=== PATIENT | male | born 1935 | race Hispanic/Latino ===

== ENCOUNTER 2018-10-13 19:13 | Emergency (ER) | payer MEDICARE ==
[2018-10-13 19:47] LABS: BASOPHILS % (AUTO) 0.6 % (0.0-5.0); EOSINOPHILS % (AUTO) 1.3 % (0.0-8.0); HEMATOCRIT 38.9 % (42-54); LYMPHOCYTES % (AUTO) 20.9 % (21.0-51.0); MEAN CORPUSCULAR HEMOGLOBIN 30.7 pg (27.0-33.0); MEAN CORPUSCULAR HGB CONC 34.6 g/dL (32.0-36.0); MONOCYTES % (AUTO) 8.4 % (3.0-13.0); NEUTROPHILS % (AUTO) 68.8 % (40.0-77.0); NUCLEATED RED BLOOD CELLS 0.1 % (0.0-0.19); PLATELET COUNT (AUTO) 226 K/uL (130-400); RED BLOOD CELL COUNT(AUTO) 4.37 MIL/uL (4.50-6.20); RED CELL DISTRIBUTION WIDTH 14.9 % (11.0-15.5); WHITE BLOOD COUNT (AUTO) 10.9 K/uL (4.8-10.8)
[2018-10-13] MEDS ORDERED: SODIUM CHLORIDE 0.9% 1000ML 1,000 ML IV ONE (19:52)
[2018-10-13 20:07] LABS: CREATININE 0.9 mg/dL (0.5-1.5)
[2018-10-13 20:12] LABS: ALBUMIN 3.5 g/dL (3.5-5.0); BILIRUBIN,TOTAL 0.8 mg/dL (0.2-1.0); TOTAL PROTEIN, SERUM 6.7 g/dL (6.0-8.3)
[2018-10-13 21:31] LABS: APPEARANCE,URINE Clear (CLEAR); BILIRUBIN,URINE Negative (NEGATIVE); COLOR,URINE Yellow (YELLOW); GLUCOSE, URINE (UA) Negative (NEGATIVE); KETONES,URINE Negative (NEGATIVE); LEUKOCYTE ESTERASE ,URINE Negative (NEGATIVE); NITRATE,URINE Negative (NEGATIVE); OCCULT BLOOD,URINE Trace (NEGATIVE); PROTEIN,URINE Negative (NEGATIVE); UROBILINOGEN,URINE 0.2 mg/dL (0.2-1.0)
[2018-10-13 21:38] LABS: RBC,URINE None Seen /HPF (0-1)
[2018-10-13 21:39] LABS: BACTERIA,URINE Rare /HPF (None Seen); SQUAMOUS EPITHELIAL CELL,UR None Seen /HPF (0-2); WBC,URINE 0-1 /HPF (0-1)
[2018-10-13] MEDS ORDERED: MAGNESIUM OXIDE 400 MG TABLET PO ONE (21:42)
[2018-10-13 23:48] LABS: APPEARANCE,URINE Clear (CLEAR); BILIRUBIN,URINE Negative (NEGATIVE); COLOR,URINE Yellow (YELLOW); GLUCOSE, URINE (UA) Negative (NEGATIVE); KETONES,URINE Negative (NEGATIVE); LEUKOCYTE ESTERASE ,URINE Trace (NEGATIVE); NITRATE,URINE Negative (NEGATIVE); OCCULT BLOOD,URINE Negative (NEGATIVE); PH,URINE 5.5 (5.0-8.0); PROTEIN,URINE Negative (NEGATIVE); UROBILINOGEN,URINE 0.2 mg/dL (0.2-1.0)
[2018-10-14] LABS: BACTERIA,URINE None Seen /HPF (None Seen); RBC,URINE None Seen /HPF (0-1); SQUAMOUS EPITHELIAL CELL,UR Rare /HPF (0-2); WBC,URINE 0-1 /HPF (0-1)
== END 2018-10-13 23:21 | disposition home or self-care (01) ==
LOC: EDH 19:13
DX: M62.81 Muscle weakness (generalized) (principal); I10 Essential (primary) hypertension; E78.5 Hyperlipidemia, unspecified; E07.9 Disorder of thyroid, unspecified; Z86.73 Personal history of transient ischemic attack (TIA), and cerebral infarction without residual deficits; Z98.890 Other specified postprocedural states
CPT/HCPCS: 36415; 71045; 80053; 81001; 83605; 83735; 84484; 85025; 87040 ×2; 87804 ×2; 93005; 99284; J7030

== ENCOUNTER → 2019-06-01 | Outpatient (CLI) | payer MEDICARE | END | disposition home or self-care (01) | LOC: RAH 10:49 | PROVIDERS: ATTEND Urology | DX: N28.1 Cyst of kidney, acquired (principal); N32.89 Other specified disorders of bladder | CPT/HCPCS: 76770 ==

== ENCOUNTER 2019-07-14 12:54 | Emergency (ER) | payer MEDICARE ==
[2019-07-14 13:34] LABS: BASOPHILS % (AUTO) 0.3 % (0.0-5.0); EOSINOPHILS % (AUTO) 4.2 % (0.0-8.0); HEMATOCRIT 40.1 % (42-54); MEAN CORPUSCULAR HEMOGLOBIN 29.1 pg (27.0-33.0); MEAN CORPUSCULAR HGB CONC 32.7 g/dL (32.0-36.0); MEAN CORPUSCULAR VOLUME 89.1 fL (79-99); MONOCYTES % (AUTO) 10.4 % (3.0-13.0); NEUTROPHILS % (AUTO) 44.9 % (40.0-77.0); PLATELET COUNT (AUTO) 257 K/uL (130-400); RED CELL DISTRIBUTION WIDTH 14.2 % (11.0-15.5); WHITE BLOOD COUNT (AUTO) 8.8 K/uL (4.8-10.8)
[2019-07-14 13:41] LABS: POTASSIUM 3.9 mmol/L (3.5-5.1)
[2019-07-14 13:43] LABS: INR 1.02 (0.85-1.15); PARTIAL THROMBOPLASTIN TIME 26.4 SEC (26.3-35.5); PROTHROMBIN TIME 10.7 SEC (9.6-11.6)
[2019-07-14 13:47] LABS: ALBUMIN 3.6 g/dL (3.5-5.0); BILIRUBIN,TOTAL 0.6 mg/dL (0.2-1.0); TOTAL PROTEIN, SERUM 7.1 g/dL (6.0-8.3)
[2019-07-14] MEDS ORDERED: HYDROCODONE/ACETAMINOPHEN 10/325 MG TAB ONE (15:32)
== END 2019-07-14 17:38 | disposition home or self-care (01) ==
LOC: EDH 12:54
DX: S00.83XA Contusion of other part of head, initial encounter (principal); S80.02XA Contusion of left knee, initial encounter; S80.01XA Contusion of right knee, initial encounter; F32.9 Major depressive disorder, single episode, unspecified; I10 Essential (primary) hypertension; E78.5 Hyperlipidemia, unspecified; Z86.73 Personal history of transient ischemic attack (TIA), and cerebral infarction without residual deficits; W18.39XA Other fall on same level, initial encounter; Y93.01 Activity, walking, marching and hiking; Y92.89 Other specified places as the place of occurrence of the external cause; Y99.8 Other external cause status
CPT/HCPCS: 36415; 70450; 70486; 71045; 72125; 72170; 73562; 80053; 82550; 84484; 85025; 85610; 85730; 93005

== ENCOUNTER 2019-12-07 10:07 | Inpatient (IN) | payer MEDICARE ==
[~2019-12-07] VITALS: Ht 167.6 cm; Wt 92.1 kg
[2019-12-07 12:18] LABS: BASOPHILS % (AUTO) 0.2 % (0.0-5.0); EOSINOPHILS % (AUTO) 1.4 % (0.0-8.0); HEMATOCRIT 39.5 % (42-54); LYMPHOCYTES % (AUTO) 21.8 % (21.0-51.0); MEAN CORPUSCULAR HEMOGLOBIN 29.5 pg (27.0-33.0); MEAN CORPUSCULAR HGB CONC 33.4 g/dL (32.0-36.0); MEAN CORPUSCULAR VOLUME 88.2 fL (79-99); NEUTROPHILS % (AUTO) 68.2 % (40.0-77.0); PLATELET COUNT (AUTO) 239 K/uL (130-400); RED BLOOD CELL COUNT(AUTO) 4.48 MIL/uL (4.50-6.20); RED CELL DISTRIBUTION WIDTH 14.6 % (11.0-15.5); WHITE BLOOD COUNT (AUTO) 16.2 K/uL (4.8-10.8)
[2019-12-07 12:42] LABS: INR 1.01 (0.85-1.15); PARTIAL THROMBOPLASTIN TIME 28.9 SEC (26.3-35.5); PROTHROMBIN TIME 10.9 SEC (9.6-11.6)
[2019-12-07 12:43] LABS: POTASSIUM 3.8 mmol/L (3.5-5.1)
[2019-12-07 12:46] LABS: ALBUMIN 3.3 g/dL (3.5-5.0); BILIRUBIN,TOTAL 0.7 mg/dL (0.2-1.0); TOTAL PROTEIN, SERUM 6.9 g/dL (6.0-8.3)
[2019-12-07 12:53] LABS: B-TYPE NATRIURETIC PEPTIDE 35 pg/mL (0-100)
[2019-12-07 13:10] LABS: APPEARANCE,URINE Cloudy (CLEAR); BILIRUBIN,URINE Negative (NEGATIVE); COLOR,URINE Yellow (YELLOW); GLUCOSE, URINE (UA) Negative (NEGATIVE); KETONES,URINE Negative (NEGATIVE); LEUKOCYTE ESTERASE ,URINE Moderate (NEGATIVE); NITRATE,URINE Negative (NEGATIVE); OCCULT BLOOD,URINE Moderate (NEGATIVE); PROTEIN,URINE Negative (NEGATIVE)
[2019-12-07 13:49] LABS: BACTERIA,URINE Many /HPF (None Seen)
[2019-12-07] MEDS ORDERED: CEFTRIAXONE SODIUM 1 GM ONE (15:14)
[2019-12-07 18:35] VITALS: BP 133/62
[2019-12-07] MEDS ORDERED: CLONIDINE HCL 0.1 MG TABLET PO PRN (19:45)
[2019-12-07] MEDS ORDERED: GUAIFENESIN SUGAR-FREE 100 MG/5 ML UDCUP PO PRN (19:45)
[2019-12-07] MEDS ORDERED: DIPHENHYDRAMINE HCL 25 MG CAPSULE PO PRN (19:45)
[2019-12-07] MEDS ORDERED: ONDANSETRON HCL 4 MG/2 ML VIAL IVP PRN (19:45)
[2019-12-07] MEDS ORDERED: LACTULOSE 20 GM/30 ML UDCUP PO PRN (19:45)
[2019-12-07] MEDS ORDERED: LIDOCAINE HCL-MPF 1% 2ML VIAL IJ PRN (19:45)
[2019-12-07] MEDS ORDERED: DEXTROSE 50%-WATER 50 ML DISP.SYRIN IV PRN (19:45)
[2019-12-07] MEDS ORDERED: ZOLPIDEM TARTRATE 5 MG TAB PO PRN (19:45)
[2019-12-07] MEDS ORDERED: GLUCAGON 1MG KIT 1 MG ML IM PRN (19:45)
[2019-12-07] MEDS ORDERED: MAG HYDROX/AL HYDROX/SIMETH ES 30 ML SUSP UDCUP PO PRN (19:45)
[2019-12-07] MEDS ORDERED: DiphenhydrAMINE HCL 50 MG/ML VIAL IVP PRN (19:45)
[2019-12-07] MEDS ORDERED: POTASSIUM CHLORIDE 20MEQ/100ML 100 ML IV PRN (19:45)
[2019-12-07] MEDS ORDERED: NITROGLYCERIN 0.4 MG SL TAB SL PRN (19:45)
[2019-12-07] MEDS ORDERED: POTASSIUM CHLORIDE 10% ELIXIR 20 MEQ/15 ML UDCUP PO PRN (19:45)
[2019-12-07] MEDS ORDERED: SODIUM CHLORIDE 0.9% 1000ML 1,000 ML IV SCH (19:45)
[2019-12-07] MEDS ORDERED: ACETAMINOPHEN 325 MG TAB PO PRN (19:45)
[2019-12-07] MEDS: INSULIN R PO SSI SQ SCH (20:59)
[2019-12-07] MEDS ORDERED: AEC81 PO (22:17)
[2019-12-07] MEDS ORDERED: LEVO175T9 PO (22:17)
[2019-12-07] MEDS ORDERED: PRIM50TA23 PO (22:17)
[2019-12-07] MEDS ORDERED: ESCI10TA PO (22:17)
[2019-12-07] MEDS ORDERED: FINA5TAB2 PO (22:17)
[2019-12-07] MEDS ORDERED: SIMV20TA2 PO (22:17)
[2019-12-07] MEDS ORDERED: TAMS-1 PO (22:17)
[2019-12-07] MEDS: ACETAMINOPHEN 325 MG TAB PO PRN (23:58)
[2019-12-08] VITALS (7 sets, daily range): BP systolic 108–132; BP diastolic 33–62
[2019-12-08] MEDS: INSULIN R PO SSI SQ SCH ×4 (05:45→20:25)
[2019-12-08 06:11] LABS: HEMATOCRIT 39.1 % (42-54); MEAN CORPUSCULAR HEMOGLOBIN 28.9 pg (27.0-33.0); MEAN CORPUSCULAR HGB CONC 33.2 g/dL (32.0-36.0); MEAN CORPUSCULAR VOLUME 86.9 fL (79-99); RED BLOOD CELL COUNT(AUTO) 4.5 MIL/uL (4.50-6.20); RED CELL DISTRIBUTION WIDTH 14.6 % (11.0-15.5); WHITE BLOOD COUNT (AUTO) 16.2 K/uL (4.8-10.8)
[2019-12-08 06:28] LABS: ALBUMIN 3.2 g/dL (3.5-5.0); BILIRUBIN,TOTAL 1.3 mg/dL (0.2-1.0); POTASSIUM 3.6 mmol/L (3.5-5.1); TOTAL PROTEIN, SERUM 6.8 g/dL (6.0-8.3)
[2019-12-08] MEDS: POTASSIUM CHLORIDE 20 MEQ ERTAB PO PRN ×2 (06:45→16:19)
[2019-12-08] MEDS ORDERED: CEFTRIAXONE SODIUM 1 GM IVP SCH (09:00)
[2019-12-08] MEDS ORDERED: FLU VACC QS2019-20 36MOS UP/PF 60 MCG/0.5 ML ML IM ONE (09:00)
[2019-12-08] MEDS: PANTOPRAZOLE SODIUM 40 MG TABLET.DR PO SCH (09:45)
[2019-12-08] MEDS: FLU VACC QS2019-20 36MOS UP/PF 60 MCG/0.5 ML ML IM SCH (10:22)
--- NOTE | 2019-12-08 18:30 | NUR ---
INFORMED DR GRIJALVA ON PATIENT C/O OF DIZZY EPISODE AND HAS HAD THESE EPISODES BEFORE WHERE HE ALSO FELL LAST WEEK PER PATIENT AND HIT HIS LEFT KNEE WHICH STILL C/O IS BOTHERSOME.BP AND HR STABLE . ALSO INFORMED PATIENT C/O OF SINUS PRESSURE AND STUFFED UP NASAL . NEW ORDERS GIVEN FOR ORTHO STATIC AND CLARITIN .. PATIENT CONT ON FALL PRECAUTIONS. BED ALARM ON. WILL CONT TO MONITOR Addendum: 12/08/19 at 193 by WALKER RODRIGUEZ RN RN NOTIFIED MD ON TEMP 100.6 .NO NEW ORDERS GIVEN REGARDING TEMP.
--- NOTE | 2019-12-08 18:42 | NUR ---
cm note met with patient and states resides at home with spouse, independent with ambulation,use home oxygen at home. has a cane and a walker, but does not use. has provider 3hrs daily assists with adls and transport. [place] no dc needs. Addendum: 12/08/19 at 1844 by ANTHONY HARMAN CM Amended: Links added.
[2019-12-09] VITALS (11 sets, daily range): BP systolic 109–154; BP diastolic 54–79
[2019-12-09] MEDS: INSULIN R PO SSI SQ SCH ×4 (06:10→20:48)
[2019-12-09 08:58] LABS: MEAN CORPUSCULAR HEMOGLOBIN 29.3 pg (27.0-33.0); MEAN CORPUSCULAR HGB CONC 33.4 g/dL (32.0-36.0); MEAN CORPUSCULAR VOLUME 87.6 fL (79-99); RED BLOOD CELL COUNT(AUTO) 4.34 MIL/uL (4.50-6.20); RED CELL DISTRIBUTION WIDTH 14.6 % (11.0-15.5); WHITE BLOOD COUNT (AUTO) 16.8 K/uL (4.8-10.8)
[2019-12-09] MEDS: PANTOPRAZOLE SODIUM 40 MG TABLET.DR PO SCH (09:17)
[2019-12-09] MEDS: LORATADINE 10 MG TABLET PO SCH (09:17)
[2019-12-09 09:19] LABS: ALBUMIN 2.9 g/dL (3.5-5.0); BILIRUBIN,TOTAL 0.8 mg/dL (0.2-1.0); POTASSIUM 4.2 mmol/L (3.5-5.1); TOTAL PROTEIN, SERUM 6.6 g/dL (6.0-8.3)
[2019-12-09] MEDS: FLU VACC QS2019-20 36MOS UP/PF 60 MCG/0.5 ML ML IM SCH (10:22)
[2019-12-09] MEDS: ZOSYN 3.375GM+NS 50ML 50 ML IV SCH ×2 (12:38→21:25)
--- NOTE | 2019-12-09 15:30 | NUR ---
PATIENT FALL NOTIFIED BY CHARGE NURSE MARLY HENLEY THAT PATIENT HAD FALLEN IN ROOM. PATIENT STATED HE WANTED TO USE THE BEDSIDE COMODE. BED ALARM WAS ACTIVE AND 3 SIDE RAILS WERE IN THE UP POSITION. PATIENT WAS ASSISTED BACK TO BED AND ASSESSED FOR INJURIES, NEURO CHECKS WERE INITIATED. CHARGE NURSE, BROODMARE BARN GROOM, DR. GRIJALVA AND MERI WAHL WERE NOTIFIED. AT APPROX 1430 HOURS PATIENT WAS PROVIDED AND PLACED ON A BEDPAN BY CHARIMSA WILL. PATIENT INDICATED HE WAS UNABLE TO USE THE BEDPAN AT THAT TIME.
--- NOTE | 2019-12-09 16:03 | NUR ---
DAUGHTER NOTIFIED NOTIFIED AVIVA HAGEN WHO WAS IDENTIFIED THE DAUGHTER. I ADVISED HER THAT PATIENT HAD FELL APPROX 1 HOUR AGO AND THAT HE WAS OK. ADVISED HER THE PHYSICIAN WAS NOTIFIED AND WAS IN THE PROCESS OF ORDERING TESTS. MRS. HAGEN STATED SHE UNDERSTOOD AND THANKED ME FOR THE NOTIFICATION AND THAT SHE WOULD FOLLOW UP BY CALLING HER FATHER.
[2019-12-09] MEDS: TAMSULOSIN HCL 0.4 MG CAP.ER.24H PO SCH (21:25)
[2019-12-09] MEDS: SIMVASTATIN 20 MG TABLET PO SCH (21:25)
[2019-12-10] MEDS: ACETAMINOPHEN 325 MG TAB PO PRN (03:45)
[2019-12-10] MEDS: ZOSYN 3.375GM+NS 50ML 50 ML IV SCH (04:16)
[2019-12-10 04:31] VITALS: BP 128/61
[2019-12-10 05:13] LABS: BASOPHILS % (AUTO) 0.2 % (0.0-5.0); EOSINOPHILS % (AUTO) 1.1 % (0.0-8.0); HEMATOCRIT 37.3 % (42-54); LYMPHOCYTES % (AUTO) 18.5 % (21.0-51.0); MEAN CORPUSCULAR HEMOGLOBIN 29.6 pg (27.0-33.0); MEAN CORPUSCULAR VOLUME 86.9 fL (79-99); MONOCYTES % (AUTO) 8.8 % (3.0-13.0); NEUTROPHILS % (AUTO) 70.6 % (40.0-77.0); PLATELET COUNT (AUTO) 244 K/uL (130-400); RED BLOOD CELL COUNT(AUTO) 4.29 MIL/uL (4.50-6.20); RED CELL DISTRIBUTION WIDTH 14.7 % (11.0-15.5); WHITE BLOOD COUNT (AUTO) 21.5 K/uL (4.8-10.8)
[2019-12-10 05:33] LABS: POTASSIUM 3.8 mmol/L (3.5-5.1)
[2019-12-10] MEDS: LEVOTHYROXINE 100 MCG TABLET PO SCH (05:56)
[2019-12-10] MEDS: LEVOTHYROXINE 75 MCG TABLET PO SCH (05:56)
[2019-12-10] MEDS: INSULIN R PO SSI SQ SCH ×4 (05:57→19:57)
[2019-12-10 08:38] VITALS: BP 108/56
[2019-12-10] MEDS: ASPIRIN 81 MG EC TAB PO SCH (10:27)
[2019-12-10] MEDS: CITALOPRAM 20 MG TABLET PO SCH (10:28)
[2019-12-10] MEDS: LORATADINE 10 MG TABLET PO SCH (10:28)
[2019-12-10] MEDS: TAMSULOSIN HCL 0.4 MG CAP.ER.24H PO SCH ×2 (10:28→21:07)
[2019-12-10] MEDS: PANTOPRAZOLE SODIUM 40 MG TABLET.DR PO SCH (10:29)
[2019-12-10] MEDS: FINASTERIDE 5 MG TABLET PO SCH (10:29)
[2019-12-10] MEDS ORDERED: MEROPENEM 1 GM VIAL IVP SCH (11:00)
[2019-12-10 11:43] VITALS: BP 110/65
[2019-12-10 16:46] VITALS: BP 126/68
[2019-12-10] MEDS: MEROPENEM 1 GM VIAL IVP SCH ×2 (17:28→23:52)
[2019-12-10 20:17] VITALS: BP 117/56
[2019-12-10] MEDS: SIMVASTATIN 20 MG TABLET PO SCH (21:07)
[2019-12-10 23:42] VITALS: BP 116/50
[2019-12-11 03:18] VITALS: BP 102/51
[2019-12-11 05:10] LABS: BASOPHILS % (AUTO) 0.2 % (0.0-5.0); EOSINOPHILS % (AUTO) 2.7 % (0.0-8.0); HEMATOCRIT 35.2 % (42-54); LYMPHOCYTES % (AUTO) 19.4 % (21.0-51.0); MEAN CORPUSCULAR HEMOGLOBIN 29.8 pg (27.0-33.0); MEAN CORPUSCULAR HGB CONC 33.8 g/dL (32.0-36.0); MEAN CORPUSCULAR VOLUME 88.2 fL (79-99); MONOCYTES % (AUTO) 8.6 % (3.0-13.0); NEUTROPHILS % (AUTO) 68.6 % (40.0-77.0); PLATELET COUNT (AUTO) 253 K/uL (130-400); RED BLOOD CELL COUNT(AUTO) 3.99 MIL/uL (4.50-6.20); RED CELL DISTRIBUTION WIDTH 14.1 % (11.0-15.5)
[2019-12-11 05:19] LABS: ALBUMIN 2.5 g/dL (3.5-5.0); BILIRUBIN,TOTAL 0.4 mg/dL (0.2-1.0); CREATININE 1.1 mg/dL (0.5-1.5); POTASSIUM 4.2 mmol/L (3.5-5.1); TOTAL PROTEIN, SERUM 6.3 g/dL (6.0-8.3)
[2019-12-11 05:24] LABS: MAGNESIUM 2.1 mg/dL (1.80-2.40)
[2019-12-11 05:35] LABS: B-TYPE NATRIURETIC PEPTIDE 49 pg/mL (0-100)
[2019-12-11] MEDS: INSULIN R PO SSI SQ SCH ×4 (06:13→21:00)
[2019-12-11] MEDS: LEVOTHYROXINE 100 MCG TABLET PO SCH (06:37)
[2019-12-11] MEDS: LEVOTHYROXINE 75 MCG TABLET PO SCH (06:37)
[2019-12-11] MEDS: MEROPENEM 1 GM VIAL IVP SCH ×3 (06:56→22:33)
[2019-12-11 08:32] VITALS: BP 101/50
[2019-12-11] MEDS: ASPIRIN 81 MG EC TAB PO SCH (10:01)
[2019-12-11] MEDS: LORATADINE 10 MG TABLET PO SCH (10:01)
[2019-12-11] MEDS: PANTOPRAZOLE SODIUM 40 MG TABLET.DR PO SCH (10:01)
[2019-12-11] MEDS: CITALOPRAM 20 MG TABLET PO SCH (10:01)
[2019-12-11] MEDS: TAMSULOSIN HCL 0.4 MG CAP.ER.24H PO SCH ×2 (10:01→21:36)
[2019-12-11] MEDS: FINASTERIDE 5 MG TABLET PO SCH (10:01)
[2019-12-11 11:00] VITALS: BP 126/62
--- NOTE | 2019-12-11 15:47 | NUR ---
CM Note: declined placement CM spoke to pt and daughter Fatuma discussed MD recommendations for short term rehab, at this time pt and daughter declined placement. Daughter verbalized pt lives w/her, pt has 24/7 care at home, as well as provider in between. Daughter will mixing picker tender pt whenever pt ready to DC. Primary nurse aware. Dr Tinsley made aware. Dcp for home possibly tomorrow if WBC closer to normal. CM to cont to follow up.
[2019-12-11 16:00] VITALS: BP 110/53
--- NOTE | 2019-12-11 16:30 | NUR ---
PT TRYING TO GET OUT OF BED , TO GO THE BATHROOM. PT STATED THAT HE FORGOT ABOUT THE CRESPO CATHETER HE HAD ,AND PULLED IT FROM THE SECURE DEVICE TO HIS LT THIGH AND PULL ON THE CATHETER AND TRAUMA WITH BLOODY . URINE NOTED . ASSESS SITE AND CRESPO. ASSIT BACK TO BED DENIES ANY PAIN BED ALARM ON AND CALL [facility].
--- NOTE | 2019-12-11 17:30 | NUR ---
CALLED PLACED TO DR. ESTHER GRIJALVA . KOBY VAIL CRESPO CATHETER TRAUMA . . NO RETURN CALL
--- NOTE | 2019-12-11 18:45 | NUR ---
CALL BACK FROM DR. GRIJALVA T/C FROM DR. GRIJALVA, INFORMED PT ACCIDENTALLY PULLED ON CRESPO CATHETER AND WAS BLOODY, NO ORDERS AT THIS TIME, CONTINUE TO MONITOR.
[2019-12-11 20:13] VITALS: BP 137/60
[2019-12-11] MEDS: SIMVASTATIN 20 MG TABLET PO SCH (21:36)
[2019-12-11 23:49] VITALS: BP 132/58
--- NOTE | 2019-12-12 03:00 | NUR ---
F/C WITH BLOOD CLOTS NOTED, PATIENT WITH C/O LOWER ABD PAIN. F/C IRRIGATED WITH STERILE WATER USING STERIL TECHNIQUE, PT TOLERATED WELL. BLOOD CLOTS REMOVED AND URINE STARTED TO FLOW FREELY, PT'S PAIN DECREASED. WILL CONT TO MONITOR CLOSELY. PT INSTRUCTED TO NOTIFY NURSE IF HE STARTS TO FEEL PAIN TO LOWER ABDOMEN. PT VOICED UNDERSTANDING.
[2019-12-12 04:07] VITALS: BP 130/55
[2019-12-12 05:05] LABS: BASOPHILS % (AUTO) 0.2 % (0.0-5.0); EOSINOPHILS % (AUTO) 3.5 % (0.0-8.0); HEMATOCRIT 34.2 % (42-54); LYMPHOCYTES % (AUTO) 24.1 % (21.0-51.0); MEAN CORPUSCULAR HEMOGLOBIN 30.1 pg (27.0-33.0); MEAN CORPUSCULAR HGB CONC 34.2 g/dL (32.0-36.0); MEAN CORPUSCULAR VOLUME 87.9 fL (79-99); MONOCYTES % (AUTO) 8.9 % (3.0-13.0); NEUTROPHILS % (AUTO) 62.8 % (40.0-77.0); NUCLEATED RED BLOOD CELLS 0.2 % (0.0-0.19); PLATELET COUNT (AUTO) 286 K/uL (130-400); RED BLOOD CELL COUNT(AUTO) 3.89 MIL/uL (4.50-6.20); RED CELL DISTRIBUTION WIDTH 14.3 % (11.0-15.5); WHITE BLOOD COUNT (AUTO) 12.9 K/uL (4.8-10.8)
[2019-12-12 05:18] LABS: CREATININE 0.9 mg/dL (0.5-1.5)
[2019-12-12] MEDS: LEVOTHYROXINE 75 MCG TABLET PO SCH (05:21)
[2019-12-12] MEDS: LEVOTHYROXINE 100 MCG TABLET PO SCH (05:21)
[2019-12-12] MEDS: INSULIN R PO SSI SQ SCH ×4 (05:39→21:00)
[2019-12-12] MEDS: MEROPENEM 1 GM VIAL IVP SCH ×3 (05:39→22:16)
[2019-12-12 07:30] VITALS: BP 114/64
[2019-12-12] MEDS: CITALOPRAM 20 MG TABLET PO SCH (10:27)
[2019-12-12] MEDS: LORATADINE 10 MG TABLET PO SCH (10:27)
[2019-12-12] MEDS: ASPIRIN 81 MG EC TAB PO SCH (10:27)
[2019-12-12] MEDS: TAMSULOSIN HCL 0.4 MG CAP.ER.24H PO SCH ×2 (10:27→22:17)
[2019-12-12] MEDS: FINASTERIDE 5 MG TABLET PO SCH (10:27)
[2019-12-12] MEDS: PANTOPRAZOLE SODIUM 40 MG TABLET.DR PO SCH (10:27)
[2019-12-12 11:00] VITALS: BP 123/66
[2019-12-12 16:00] VITALS: BP 122/75
[2019-12-12 19:00] VITALS: BP 143/57
[2019-12-12] MEDS ORDERED: IOHEXOL-350 75 ML VIAL IV ONE (19:53)
[2019-12-12] MEDS: SIMVASTATIN 20 MG TABLET PO SCH (22:16)
[2019-12-13] VITALS: BP 139/55
[2019-12-13 04:00] VITALS: BP 122/52
[2019-12-13 04:09] LABS: HEMATOCRIT 35.6 % (42-54); MEAN CORPUSCULAR HEMOGLOBIN 29.2 pg (27.0-33.0); MEAN CORPUSCULAR HGB CONC 33.4 g/dL (32.0-36.0); MEAN CORPUSCULAR VOLUME 87.5 fL (79-99); RED BLOOD CELL COUNT(AUTO) 4.07 MIL/uL (4.50-6.20); RED CELL DISTRIBUTION WIDTH 14.1 % (11.0-15.5); WHITE BLOOD COUNT (AUTO) 11.9 K/uL (4.8-10.8)
[2019-12-13 04:27] LABS: CREATININE 0.9 mg/dL (0.5-1.5)
[2019-12-13] MEDS: MEROPENEM 1 GM VIAL IVP SCH ×2 (05:35→14:00)
[2019-12-13] MEDS: LEVOTHYROXINE 75 MCG TABLET PO SCH (05:39)
[2019-12-13] MEDS: LEVOTHYROXINE 100 MCG TABLET PO SCH (05:39)
[2019-12-13 07:30] VITALS: BP 114/50
[2019-12-13] MEDS: INSULIN R PO SSI SQ SCH ×2 (07:30→11:30)
[2019-12-13] MEDS: TAMSULOSIN HCL 0.4 MG CAP.ER.24H PO SCH (08:38)
[2019-12-13] MEDS: PANTOPRAZOLE SODIUM 40 MG TABLET.DR PO SCH (08:38)
[2019-12-13] MEDS: LORATADINE 10 MG TABLET PO SCH (08:38)
[2019-12-13] MEDS: CITALOPRAM 20 MG TABLET PO SCH (08:38)
[2019-12-13] MEDS: ASPIRIN 81 MG EC TAB PO SCH (08:38)
[2019-12-13] MEDS: FINASTERIDE 5 MG TABLET PO SCH (08:38)
[2019-12-13 11:00] VITALS: BP 126/67
[2019-12-13] MEDS ORDERED: SULF1TAB42 PO (14:28)
[2019-12-13 16:00] VITALS: BP 119/58
== END 2019-12-13 18:30 | disposition home or self-care (01) | DRG 872 ==
LOC: EDH 10:07 → OBSVTOIN 14:00 → EDHIP 14:00 → 3CH 18:16
PROVIDERS: ADMIT Internal Medicine Pulmonary Disease; ATTEND Internal Medicine Pulmonary Disease
DX: A41.9 Sepsis, unspecified organism (principal); N39.0 Urinary tract infection, site not specified; Z16.12 Extended spectrum beta lactamase (ESBL) resistance; I69.351 Hemiplegia and hemiparesis following cerebral infarction affecting right dominant side; N40.0 Benign prostatic hyperplasia without lower urinary tract symptoms; E03.9 Hypothyroidism, unspecified; B96.20 Unspecified Escherichia coli [E. coli] as the cause of diseases classified elsewhere; E78.5 Hyperlipidemia, unspecified; F32.9 Major depressive disorder, single episode, unspecified; F41.9 Anxiety disorder, unspecified; I11.0 Hypertensive heart disease with heart failure; I50.9 Heart failure, unspecified; R31.0 Gross hematuria; I25.10 Atherosclerotic heart disease of native coronary artery without angina pectoris; J84.10 Pulmonary fibrosis, unspecified; N28.1 Cyst of kidney, acquired; N32.3 Diverticulum of bladder; Z96.659 Presence of unspecified artificial knee joint; Z90.49 Acquired absence of other specified parts of digestive tract; Z90.79 Acquired absence of other genital organ(s); Z79.82 Long term (current) use of aspirin; Z79.899 Other long term (current) drug therapy
CPT/HCPCS: 36415; 70450; 71045; 71250; 72125; 73562; 74176; 74178; 80048; 80053; 81001; 82140; 82550; 82948; 83605; 83735; 83880; 84145; 84484; 85025; 85027; 85378; 85610; 85730; 87040; 87077; 87088; 87186; 87804; 93005; 97039; G0378; J0696; J2185; J2543; J3490; Q0163; Q9967

== ENCOUNTER 2019-12-15 23:17 | Emergency (ER) | payer MEDICARE ==
[2019-12-15] MEDS ORDERED: MAG HYDROX/AL HYDROX/SIMETH ES 30 ML SUSP UDCUP ONE (23:44)
[2019-12-15] MEDS ORDERED: ONDANSETRON HCL 4 MG/2 ML VIAL ONE (23:44)
[2019-12-15] MEDS ORDERED: LIDOCAINE HCL 2% VISCOUS 15 ML UDCUP ONE (23:44)
[2019-12-16] MEDS ORDERED: ZOSYN 3.375GM+NS 50ML 50 ML IV ONE (01:59)
== END 2019-12-16 03:07 | disposition home or self-care (01) ==
LOC: EDH 23:17
DX: N30.01 Acute cystitis with hematuria (principal); I10 Essential (primary) hypertension; E78.5 Hyperlipidemia, unspecified; E07.9 Disorder of thyroid, unspecified; F32.9 Major depressive disorder, single episode, unspecified; Z86.73 Personal history of transient ischemic attack (TIA), and cerebral infarction without residual deficits
CPT/HCPCS: 36415; 74176; 80048; 81001; 85025; 87088; 96365; 99285; J2405; J2543

== ENCOUNTER → 2020-01-02 | Outpatient (CLI) | payer MEDICARE ==
[~2020-01-02] MED LIST: AEC81 PO; ESCI10TA PO; FINA5TAB2 PO; LEVO175T9 PO; PRIM50TA23 PO; SIMV20TA2 PO; SULF1TAB42 PO; TAMS-1 PO
== END | disposition home or self-care (01) ==
LOC: RAH 10:07
PROVIDERS: ATTEND Urology
DX: N28.1 Cyst of kidney, acquired (principal); R31.0 Gross hematuria; R33.9 Retention of urine, unspecified
CPT/HCPCS: 76770

== ENCOUNTER 2020-07-23 16:35 | Emergency (ER) | payer MEDICARE ==
[2020-07-23 17:05] LABS: BASOPHILS % (AUTO) 0.5 % (0.0-5.0); EOSINOPHILS % (AUTO) 3.9 % (0.0-8.0); HEMATOCRIT 43.5 % (42-54); LYMPHOCYTES % (AUTO) 40.6 % (21.0-51.0); MEAN CORPUSCULAR HEMOGLOBIN 28.3 pg (27.0-33.0); MEAN CORPUSCULAR HGB CONC 33.3 g/dL (32.0-36.0); MEAN CORPUSCULAR VOLUME 84.8 fL (79-99); MONOCYTES % (AUTO) 9.8 % (3.0-13.0); NEUTROPHILS % (AUTO) 44.9 % (40.0-77.0); PLATELET COUNT (AUTO) 285 K/uL (130-400); RED BLOOD CELL COUNT(AUTO) 5.13 MIL/uL (4.50-6.20); RED CELL DISTRIBUTION WIDTH 14.3 % (11.0-15.5); WHITE BLOOD COUNT (AUTO) 10.7 K/uL (4.8-10.8)
[2020-07-23 17:15] LABS: CREATININE 1.1 mg/dL (0.5-1.5); POTASSIUM 4.3 mmol/L (3.5-5.1)
[2020-07-23 17:20] LABS: ALBUMIN 3.6 g/dL (3.5-5.0); BILIRUBIN,TOTAL 0.3 mg/dL (0.2-1.0); TOTAL PROTEIN, SERUM 7.5 g/dL (6.0-8.3)
== END 2020-07-23 19:06 | disposition home or self-care (01) ==
LOC: EDH 16:35
DX: S00.83XA Contusion of other part of head, initial encounter (principal); S00.12XA Contusion of left eyelid and periocular area, initial encounter; M25.78 Osteophyte, vertebrae; F32.9 Major depressive disorder, single episode, unspecified; I10 Essential (primary) hypertension; E78.5 Hyperlipidemia, unspecified; Z86.73 Personal history of transient ischemic attack (TIA), and cerebral infarction without residual deficits; E07.9 Disorder of thyroid, unspecified; W01.198A Fall on same level from slipping, tripping and stumbling with subsequent striking against other object, initial encounter; Y93.89 Activity, other specified; Y92.89 Other specified places as the place of occurrence of the external cause; Y99.8 Other external cause status
CPT/HCPCS: 36415; 70450; 72125; 80053; 84484; 85025

== ENCOUNTER 2020-10-31 13:27 | Inpatient (IN) | payer MEDICARE ==
[~2020-10-31] VITALS: Ht 160 cm; Wt 84.6 kg
[2020-10-31 14:21] LABS: BASOPHILS % (AUTO) 0.4 % (0.0-5.0); EOSINOPHILS % (AUTO) 4.2 % (0.0-8.0); HEMATOCRIT 42.8 % (42-54); LYMPHOCYTES % (AUTO) 29.4 % (21.0-51.0); MEAN CORPUSCULAR HEMOGLOBIN 28.3 pg (27.0-33.0); MEAN CORPUSCULAR HGB CONC 32.7 g/dL (32.0-36.0); MEAN CORPUSCULAR VOLUME 86.5 fL (79-99); MONOCYTES % (AUTO) 10.5 % (3.0-13.0); NEUTROPHILS % (AUTO) 55.1 % (40.0-77.0); PLATELET COUNT (AUTO) 284 K/uL (130-400); RED BLOOD CELL COUNT(AUTO) 4.95 MIL/uL (4.50-6.20); RED CELL DISTRIBUTION WIDTH 14.6 % (11.0-15.5); WHITE BLOOD COUNT (AUTO) 11.2 K/uL (4.8-10.8)
[2020-10-31 14:31] LABS: CREATININE 0.9 mg/dL (0.5-1.5); POTASSIUM 4.1 mmol/L (3.5-5.1)
[2020-10-31 14:38] LABS: ALBUMIN 3.5 g/dL (3.5-5.0); BILIRUBIN,TOTAL 0.5 mg/dL (0.2-1.0); TOTAL PROTEIN, SERUM 7.3 g/dL (6.0-8.3)
[2020-10-31] MEDS ORDERED: LIDOCAINE HCL-MPF 1% 2ML VIAL IV PRN ×2 (17:00)
[2020-10-31] MEDS ORDERED: ACETAMINOPHEN 325 MG TAB PO PRN (17:00)
[2020-10-31] MEDS ORDERED: POTASSIUM CHLORIDE 10% ELIXIR 20 MEQ/15 ML UDCUP PO PRN (17:00)
[2020-10-31] MEDS ORDERED: ONDANSETRON 4MG INJ IVP PRN (17:00)
[2020-10-31] MEDS ORDERED: KCL 20 MEQ ERTAB PO PRN (17:00)
[2020-10-31] MEDS ORDERED: POTASSIUM CHLORIDE 20MEQ/100ML 100 ML IV PRN ×2 (17:00)
[2020-10-31] MEDS ORDERED: MAGNESIUM 2GM PREMIX 50ML 50 ML IV PRN (17:00)
[2020-10-31] MEDS ORDERED: DEXAMETHASONE SOD PHOSPHATE 4 MG/ML 1ML VIAL ONE (17:18)
[2020-10-31] MEDS ORDERED: ACETAMINOPHEN 325 MG TAB ONE (17:19)
[2020-11-01 01:00] LABS: APPEARANCE,URINE Clear (CLEAR); BILIRUBIN,URINE Negative (NEGATIVE); COLOR,URINE Yellow (YELLOW); GLUCOSE, URINE (UA) Negative (NEGATIVE); KETONES,URINE Negative (NEGATIVE); LEUKOCYTE ESTERASE ,URINE Negative (NEGATIVE); NITRATE,URINE Negative (NEGATIVE); OCCULT BLOOD,URINE Moderate (NEGATIVE); PH,URINE 5.5 (5.0-8.0); PROTEIN,URINE Negative (NEGATIVE)
[2020-11-01 01:07] LABS: BACTERIA,URINE Few /HPF (None Seen); RBC,URINE 0-1 /HPF (0-1); WBC,URINE 0-1 /HPF (0-1)
[2020-11-01 06:12] LABS: HEMATOCRIT 41.2 % (42-54); MEAN CORPUSCULAR HEMOGLOBIN 28.9 pg (27.0-33.0); MEAN CORPUSCULAR HGB CONC 34.5 g/dL (32.0-36.0); MEAN CORPUSCULAR VOLUME 83.9 fL (79-99); RED BLOOD CELL COUNT(AUTO) 4.91 MIL/uL (4.50-6.20); RED CELL DISTRIBUTION WIDTH 14.2 % (11.0-15.5); WHITE BLOOD COUNT (AUTO) 8.8 K/uL (4.8-10.8)
[2020-11-01 06:30] LABS: ALBUMIN 3.3 g/dL (3.5-5.0); BILIRUBIN,TOTAL 0.5 mg/dL (0.2-1.0); CREATININE 0.9 mg/dL (0.5-1.5); POTASSIUM 4.4 mmol/L (3.5-5.1); TOTAL PROTEIN, SERUM 7.4 g/dL (6.0-8.3)
[2020-11-01 06:52] LABS: THYROID STIMULATING HORMONE 0.01 uIU/mL (0.36-3.74)
[2020-11-01 10:04] VITALS: BP 159/68
[2020-11-01 11:50] VITALS: BP 130/66
[2020-11-01 16:00] VITALS: BP 144/70
[2020-11-01 19:00] VITALS: BP 127/71
[2020-11-01] MEDS ORDERED: ENAL2.5T16 PO (19:08)
[2020-11-01 23:00] VITALS: BP 118/65
[2020-11-02] VITALS (7 sets, daily range): BP systolic 112–138; BP diastolic 46–75
[2020-11-02 04:29] LABS: HEMATOCRIT 38.5 % (42-54); MEAN CORPUSCULAR HEMOGLOBIN 28.9 pg (27.0-33.0); MEAN CORPUSCULAR HGB CONC 34.3 g/dL (32.0-36.0); MEAN CORPUSCULAR VOLUME 84.2 fL (79-99); RED BLOOD CELL COUNT(AUTO) 4.57 MIL/uL (4.50-6.20); RED CELL DISTRIBUTION WIDTH 14.6 % (11.0-15.5); WHITE BLOOD COUNT (AUTO) 14.5 K/uL (4.8-10.8)
[2020-11-02 04:39] LABS: CREATININE 0.9 mg/dL (0.5-1.5); POTASSIUM 3.9 mmol/L (3.5-5.1)
[2020-11-02] MEDS: PANTOPRAZOLE 40 MG TAB DR PO SCH ×2 (08:25→09:00)
[2020-11-02] MEDS: PRIMIDONE 50 MG TAB PO SCH ×2 (08:25→20:52)
[2020-11-02] MEDS: TAMSULOSIN HCL 0.4 MG CAP.ER.24H PO SCH ×2 (08:25→20:52)
[2020-11-02] MEDS: FINASTERIDE 5 MG TABLET PO SCH (08:25)
[2020-11-02] MEDS: ENALAPRIL MALEATE 5 MG TAB PO SCH (08:28)
[2020-11-02] MEDS: DEXAMETHASONE SOD PHOSPHATE 4 MG/ML 1ML VIAL IVP SCH (08:32)
[2020-11-02] MEDS ORDERED: NON-FORMULARY MEDICATION 1 EACH (Levothyroxine Sodium 175 MCG) PO SCH (09:00)
[2020-11-02] MEDS ORDERED: GUAIFENESIN-DM 200/20 MG 10 ML PO PRN (13:30)
[2020-11-02] MEDS: LACTULOSE 20 GM/30 ML UDCUP PO SCH ×2 (15:31→20:53)
[2020-11-02] MEDS: SIMVASTATIN 20 MG TABLET PO SCH (20:52)
[2020-11-03 04:00] VITALS: BP 112/49
[2020-11-03 04:36] LABS: ALBUMIN 3.1 g/dL (3.5-5.0); BILIRUBIN,TOTAL 0.3 mg/dL (0.2-1.0); POTASSIUM 4.4 mmol/L (3.5-5.1); TOTAL PROTEIN, SERUM 6.6 g/dL (6.0-8.3)
[2020-11-03 08:40] VITALS: BP 113/60
[2020-11-03] MEDS: ENALAPRIL MALEATE 5 MG TAB PO SCH (10:27)
[2020-11-03] MEDS: FINASTERIDE 5 MG TABLET PO SCH (10:27)
[2020-11-03] MEDS: LACTULOSE 20 GM/30 ML UDCUP PO SCH ×3 (10:28→21:00)
[2020-11-03] MEDS: TAMSULOSIN HCL 0.4 MG CAP.ER.24H PO SCH ×2 (10:28→20:41)
[2020-11-03] MEDS: PRIMIDONE 50 MG TAB PO SCH ×2 (10:28→20:41)
[2020-11-03] MEDS: PANTOPRAZOLE 40 MG TAB DR PO SCH (10:28)
[2020-11-03] MEDS: DEXAMETHASONE SOD PHOSPHATE 4 MG/ML 1ML VIAL IVP SCH (10:29)
[2020-11-03 12:07] VITALS: BP 142/65
[2020-11-03 15:30] VITALS: BP 110/63
[2020-11-03] MEDS: SIMVASTATIN 20 MG TABLET PO SCH (20:41)
[2020-11-03 20:51] VITALS: BP 117/61
[2020-11-03 23:56] VITALS: BP 111/60
[2020-11-04 04:37] LABS: HEMATOCRIT 36.8 % (42-54); MEAN CORPUSCULAR HEMOGLOBIN 28.8 pg (27.0-33.0); MEAN CORPUSCULAR HGB CONC 34.5 g/dL (32.0-36.0); MEAN CORPUSCULAR VOLUME 83.4 fL (79-99); RED BLOOD CELL COUNT(AUTO) 4.41 MIL/uL (4.50-6.20); RED CELL DISTRIBUTION WIDTH 14.4 % (11.0-15.5); WHITE BLOOD COUNT (AUTO) 17.8 K/uL (4.8-10.8)
[2020-11-04 04:43] VITALS: BP 117/58
[2020-11-04 04:48] LABS: BILIRUBIN,TOTAL 0.3 mg/dL (0.2-1.0); POTASSIUM 4.1 mmol/L (3.5-5.1); TOTAL PROTEIN, SERUM 6.3 g/dL (6.0-8.3)
[2020-11-04 07:49] VITALS: BP 124/57
[2020-11-04] MEDS: ENALAPRIL MALEATE 5 MG TAB PO SCH (08:05)
[2020-11-04] MEDS: PANTOPRAZOLE 40 MG TAB DR PO SCH (08:05)
[2020-11-04] MEDS: PRIMIDONE 50 MG TAB PO SCH ×2 (08:05→20:23)
[2020-11-04] MEDS: LACTULOSE 20 GM/30 ML UDCUP PO SCH ×2 (08:05→20:41)
[2020-11-04] MEDS: TAMSULOSIN HCL 0.4 MG CAP.ER.24H PO SCH ×2 (08:05→20:23)
[2020-11-04] MEDS: FINASTERIDE 5 MG TABLET PO SCH (08:05)
[2020-11-04] MEDS: DEXAMETHASONE SOD PHOSPHATE 4 MG/ML 1ML VIAL IVP SCH (08:06)
[2020-11-04 11:57] VITALS: BP 113/62
[2020-11-04 16:00] VITALS: BP 121/67
[2020-11-04 19:45] VITALS: BP 141/64
[2020-11-04] MEDS: SIMVASTATIN 20 MG TABLET PO SCH (20:23)
[2020-11-04 23:42] VITALS: BP 132/62
[2020-11-05 04:01] VITALS: BP 108/51
[2020-11-05 04:34] LABS: BASOPHILS % (AUTO) 0.1 % (0.0-5.0); HEMATOCRIT 38.6 % (42-54); LYMPHOCYTES % (AUTO) 24.3 % (21.0-51.0); MEAN CORPUSCULAR HEMOGLOBIN 28.3 pg (27.0-33.0); MEAN CORPUSCULAR HGB CONC 33.7 g/dL (32.0-36.0); MEAN CORPUSCULAR VOLUME 84.1 fL (79-99); MONOCYTES % (AUTO) 6.4 % (3.0-13.0); NEUTROPHILS % (AUTO) 68.4 % (40.0-77.0); PLATELET COUNT (AUTO) 341 K/uL (130-400); RED BLOOD CELL COUNT(AUTO) 4.59 MIL/uL (4.50-6.20); RED CELL DISTRIBUTION WIDTH 14.5 % (11.0-15.5); WHITE BLOOD COUNT (AUTO) 20.5 K/uL (4.8-10.8)
[2020-11-05 05:10] LABS: POTASSIUM 4.3 mmol/L (3.5-5.1); THYROID STIMULATING HORMONE 0.03 uIU/mL (0.36-3.74)
[2020-11-05 08:41] VITALS: BP 111/42
[2020-11-05] MEDS: FINASTERIDE 5 MG TABLET PO SCH (08:48)
[2020-11-05] MEDS: PANTOPRAZOLE 40 MG TAB DR PO SCH (08:48)
[2020-11-05] MEDS: TAMSULOSIN HCL 0.4 MG CAP.ER.24H PO SCH (08:48)
[2020-11-05] MEDS: ENALAPRIL MALEATE 5 MG TAB PO SCH (08:48)
[2020-11-05] MEDS: LACTULOSE 20 GM/30 ML UDCUP PO SCH (08:48)
[2020-11-05] MEDS: PRIMIDONE 50 MG TAB PO SCH (08:49)
[2020-11-05 12:02] VITALS: BP 115/76
[2020-11-05] MEDS ORDERED: LIDOCAINE 5% TOPICAL PATCH TP SCH (20:00)
== END 2020-11-05 14:30 | disposition home or self-care (01) | DRG 948 ==
LOC: EDH 13:27 → INTOOBSV 16:45 → EDHIP 16:45 → UNDOADMOB 16:45 → OBSVTOIN 16:45 → 4CH 11-01 08:30 → EDHIP 11-01 08:30 → UNDODISIN 11-05 14:30
PROVIDERS: ADMIT Internal Medicine; ATTEND Internal Medicine
DX: R53.1 Weakness (principal); G99.2 Myelopathy in diseases classified elsewhere; S12.110A Anterior displaced Type II dens fracture, initial encounter for closed fracture; M48.02 Spinal stenosis, cervical region; J84.10 Pulmonary fibrosis, unspecified; E78.5 Hyperlipidemia, unspecified; I10 Essential (primary) hypertension; M48.05 Spinal stenosis, thoracolumbar region; E03.9 Hypothyroidism, unspecified; F03.90 Unspecified dementia, unspecified severity, without behavioral disturbance, psychotic disturbance, mood disturbance, and anxiety; F32.9 Major depressive disorder, single episode, unspecified; N40.0 Benign prostatic hyperplasia without lower urinary tract symptoms; W18.30XA Fall on same level, unspecified, initial encounter; R53.81 Other malaise; T38.1X5A Adverse effect of thyroid hormones and substitutes, initial encounter; R29.6 Repeated falls; Z79.82 Long term (current) use of aspirin; Z86.73 Personal history of transient ischemic attack (TIA), and cerebral infarction without residual deficits; Z91.81 History of falling; Z79.899 Other long term (current) drug therapy; Z98.1 Arthrodesis status; Y92.009 Unspecified place in unspecified non-institutional (private) residence as the place of occurrence of the external cause; Y93.89 Activity, other specified; Y99.8 Other external cause status
CPT/HCPCS: 36415; 70450; 71045; 72125; 72131; 72141; 72146; 72148; 73562; 76536; 80048; 80053; 81001; 82948; 83735; 83880; 84145; 84443; 85025; 85027; 87040; 93005; 97039; G0378; J1100

== ENCOUNTER → 2021-07-07 | Outpatient (CLI) | payer MEDICARE ==
[~2021-07-07] MED LIST changes: -AEC81 PO; +ENAL2.5T16 PO; -ESCI10TA PO; -LEVO175T9 PO; -SULF1TAB42 PO
== END | disposition home or self-care (01) ==
LOC: RAH 09:59
PROVIDERS: ATTEND Family Medicine
DX: K21.9 Gastro-esophageal reflux disease without esophagitis (principal); K44.9 Diaphragmatic hernia without obstruction or gangrene; K29.70 Gastritis, unspecified, without bleeding; R13.14 Dysphagia, pharyngoesophageal phase; R12 Heartburn
CPT/HCPCS: 74230; 92611

== ENCOUNTER → 2021-07-13 | Outpatient (CLI) | payer MEDICARE | END | disposition home or self-care (01) | LOC: RAH 09:34 | PROVIDERS: ATTEND Family Medicine | DX: K21.9 Gastro-esophageal reflux disease without esophagitis (principal); K44.9 Diaphragmatic hernia without obstruction or gangrene; K29.70 Gastritis, unspecified, without bleeding; R13.14 Dysphagia, pharyngoesophageal phase; R12 Heartburn | CPT/HCPCS: 74240 ==

== ENCOUNTER 2021-08-01 13:10 | Emergency (ER) | payer MEDICARE ==
[~2021-08-01] VITALS: Ht 170.2 cm; Wt 76.2 kg
[2021-08-01] MEDS ORDERED: ACET-66 PO (15:47)
[2021-08-01] MEDS ORDERED: KETOROLAC 15MG/ML VIAL (15MG/ML) ONE (16:18)
[2021-08-01] MEDS ORDERED: KETOROLAC 15MG/ML VIAL (15MG/ML) IM ONE (16:30)
[2021-08-01 16:55] VITALS: BP 126/42
== END 2021-08-01 18:30 | disposition home or self-care (01) ==
LOC: EDH 13:15
DX: M94.0 Chondrocostal junction syndrome [Tietze] (principal); M54.2 Cervicalgia; R51.9 Headache, unspecified; M19.90 Unspecified osteoarthritis, unspecified site; E03.9 Hypothyroidism, unspecified; Z88.6 Allergy status to analgesic agent; Z86.73 Personal history of transient ischemic attack (TIA), and cerebral infarction without residual deficits; Z79.899 Other long term (current) drug therapy; W01.0XXA Fall on same level from slipping, tripping and stumbling without subsequent striking against object, initial encounter; Y93.01 Activity, walking, marching and hiking; Y92.89 Other specified places as the place of occurrence of the external cause; Y99.8 Other external cause status
CPT/HCPCS: 70450; 70486; 71101; 72125; 96372; 99284; J1885

== ENCOUNTER 2021-12-23 13:24 | Emergency (ER) | payer MEDICARE ==
[~2021-12-23] VITALS: Ht 162.6 cm; Wt 63.5 kg
[~2021-12-23 13:24] MED LIST changes: +ACET-66 PO; +ESCI20TA38 PO; +LORA0.5T83 PO; +NITR100C PO
[2021-12-23 13:53] LABS: BASOPHILS % (AUTO) 0.5 % (0.0-5.0); HEMATOCRIT 42.2 % (42-54); LYMPHOCYTES % (AUTO) 39.7 % (21.0-51.0); MEAN CORPUSCULAR HEMOGLOBIN 29.1 pg (27.0-33.0); MEAN CORPUSCULAR HGB CONC 32.7 g/dL (32.0-36.0); MONOCYTES % (AUTO) 9.1 % (3.0-13.0); NEUTROPHILS % (AUTO) 44.4 % (40.0-77.0); PLATELET COUNT (AUTO) 241 K/uL (130-400); RED BLOOD CELL COUNT(AUTO) 4.74 MIL/uL (4.50-6.20); WHITE BLOOD COUNT (AUTO) 7.5 K/uL (4.8-10.8)
[2021-12-23 14:04] LABS: CREATININE 0.9 mg/dL (0.5-1.5); POTASSIUM 3.9 mmol/L (3.5-5.1)
[2021-12-23 14:09] LABS: ALBUMIN 3.4 g/dL (3.5-5.0); BILIRUBIN,TOTAL 0.5 mg/dL (0.2-1.0); TOTAL PROTEIN, SERUM 7.7 g/dL (6.0-8.3)
[2021-12-23 14:34] LABS: APPEARANCE,URINE Clear (CLEAR); BILIRUBIN,URINE Negative (NEGATIVE); COLOR,URINE Yellow (YELLOW); GLUCOSE, URINE (UA) Negative (NEGATIVE); KETONES,URINE Negative (NEGATIVE); LEUKOCYTE ESTERASE ,URINE Negative (NEGATIVE); NITRATE,URINE Negative (NEGATIVE); OCCULT BLOOD,URINE Large (NEGATIVE); PH,URINE 5.5 (5.0-8.0); PROTEIN,URINE Negative (NEGATIVE)
[2021-12-23 15:02] LABS: BACTERIA,URINE Few /HPF (None Seen); MUCUS,URINE Few LPF (None Seen); SQUAMOUS EPITHELIAL CELL,UR Few /HPF (0-2)
[2021-12-23] MEDS ORDERED: TAMS-1 PO (16:44)
[2021-12-23 17:02] VITALS: BP 129/79
== END 2021-12-23 17:12 | disposition home or self-care (01) ==
LOC: EDH 13:28
DX: N40.1 Benign prostatic hyperplasia with lower urinary tract symptoms (principal); R33.8 Other retention of urine; Z79.899 Other long term (current) drug therapy; Z88.6 Allergy status to analgesic agent
CPT/HCPCS: 36415; 74176; 80053; 81001; 83690; 84484; 85025; 93005

== ENCOUNTER 2021-12-25 15:59 | Emergency (ER) | payer MEDICARE ==
[~2021-12-25] VITALS: Ht 160 cm; Wt 72.6 kg
[2021-12-25] MEDS ORDERED: LIDOCAINE HCL 2% VISCOUS 15 ML UDCUP ONE (16:52)
[2021-12-25] MEDS ORDERED: LIDOCAINE HCL 2% VISCOUS 15 ML UDCUP PO ONE (17:00)
[2021-12-25 17:09] VITALS: BP 137/58
[2021-12-25 17:26] LABS: APPEARANCE,URINE Clear (CLEAR); BILIRUBIN,URINE Negative (NEGATIVE); COLOR,URINE Yellow (YELLOW); GLUCOSE, URINE (UA) Negative (NEGATIVE); KETONES,URINE Negative (NEGATIVE); LEUKOCYTE ESTERASE ,URINE Negative (NEGATIVE); NITRATE,URINE Negative (NEGATIVE); OCCULT BLOOD,URINE Moderate (NEGATIVE); PH,URINE 5.5 (5.0-8.0); PROTEIN,URINE Negative (NEGATIVE); UROBILINOGEN,URINE 0.2 mg/dL (0.2-1.0)
[2021-12-25 17:35] LABS: BACTERIA,URINE Rare /HPF (None Seen); MUCUS,URINE None Seen LPF (None Seen); SQUAMOUS EPITHELIAL CELL,UR Rare /HPF (0-2); WBC,URINE 0-1 /HPF (0-1)
== END 2021-12-25 17:23 | disposition home or self-care (01) ==
LOC: EDH 15:59
DX: R33.9 Retention of urine, unspecified (principal); Z88.6 Allergy status to analgesic agent; Z79.899 Other long term (current) drug therapy
CPT/HCPCS: 51702; 81001

== ENCOUNTER 2021-12-29 13:00 | Emergency (ER) | payer MEDICARE ==
[~2021-12-29] VITALS: Ht 160 cm; Wt 63.5 kg
[2021-12-29 13:30] LABS: BASOPHILS % (AUTO) 0.3 % (0.0-5.0); EOSINOPHILS % (AUTO) 6.2 % (0.0-8.0); HEMATOCRIT 40.5 % (42-54); LYMPHOCYTES % (AUTO) 30.3 % (21.0-51.0); MEAN CORPUSCULAR HEMOGLOBIN 29.6 pg (27.0-33.0); MEAN CORPUSCULAR HGB CONC 33.6 g/dL (32.0-36.0); MONOCYTES % (AUTO) 8.8 % (3.0-13.0); NEUTROPHILS % (AUTO) 54.2 % (40.0-77.0); PLATELET COUNT (AUTO) 260 K/uL (130-400); RED CELL DISTRIBUTION WIDTH 13.3 % (11.0-15.5); WHITE BLOOD COUNT (AUTO) 9.4 K/uL (4.8-10.8)
[2021-12-29 13:50] LABS: ALBUMIN 3.4 g/dL (3.5-5.0); BILIRUBIN,TOTAL 0.5 mg/dL (0.2-1.0); CREATININE 1.1 mg/dL (0.5-1.5); POTASSIUM 4.3 mmol/L (3.5-5.1); TOTAL PROTEIN, SERUM 7.9 g/dL (6.0-8.3)
[2021-12-29 13:53] LABS: APPEARANCE,URINE Cloudy (CLEAR); BILIRUBIN,URINE Negative (NEGATIVE); COLOR,URINE Red (YELLOW); GLUCOSE, URINE (UA) Negative (NEGATIVE); KETONES,URINE Negative (NEGATIVE); LEUKOCYTE ESTERASE ,URINE Moderate (NEGATIVE); NITRATE,URINE Negative (NEGATIVE); OCCULT BLOOD,URINE Large (NEGATIVE); PROTEIN,URINE POS 2+ mg/dL (NEGATIVE)
[2021-12-29 13:54] LABS: INR 1.08 (0.85-1.15); PROTHROMBIN TIME 11.7 SEC (9.6-11.6)
[2021-12-29] MEDS ORDERED: 0.9% NACL 500ML IV.SOLN 500 ML IV ONE (14:00)
[2021-12-29] MEDS ORDERED: MORPHINE 2 MG SYG IVP ONE (14:00)
[2021-12-29] MEDS ORDERED: ONDANSETRON 4MG INJ IVP ONE (14:00)
[2021-12-29] MEDS ORDERED: CEFTRIAXONE 1G VIAL IVP ONE (14:30)
[2021-12-29 14:47] LABS: BACTERIA,URINE Few /HPF (None Seen); SQUAMOUS EPITHELIAL CELL,UR Rare /HPF (0-2)
[2021-12-29 14:48] LABS: RBC,URINE 51-100 /HPF (0-1)
[2021-12-29 14:57] VITALS: BP 126/49
[2021-12-29] MEDS ORDERED: ONDA4TAB10 PO (15:27)
[2021-12-29] MEDS ORDERED: CEPH500B PO (15:27)
== END 2021-12-29 15:49 | disposition home or self-care (01) ==
LOC: EDH 13:00
DX: N39.0 Urinary tract infection, site not specified (principal); Z88.8 Allergy status to other drugs, medicaments and biological substances; Z79.899 Other long term (current) drug therapy; Z98.890 Other specified postprocedural states
CPT/HCPCS: 36415; 74176; 80053; 81001; 85025; 85610; 85730; 87088; 96374; 96375; 99284; J0696; J2405; J7040

== ENCOUNTER 2022-01-04 13:16 | Observation (INO) | payer MEDICARE ==
[~2022-01-04] VITALS: Ht 162.6 cm; Wt 75.3 kg
[~2022-01-04 13:16] MED LIST changes: +CEPH500B PO; +ONDA4TAB10 PO
[2022-01-04 14:52] LABS: APPEARANCE,URINE CLEAR (CLEAR); BILIRUBIN,URINE NEGATIVE (NEGATIVE); COLOR,URINE YELLOW (YELLOW); GLUCOSE, URINE (UA) NEGATIVE (NEGATIVE); KETONES,URINE NEGATIVE (NEGATIVE); LEUKOCYTE ESTERASE ,URINE NEGATIVE (NEGATIVE); NITRATE,URINE NEGATIVE (NEGATIVE); OCCULT BLOOD,URINE LARGE (NEGATIVE); PROTEIN,URINE 30 mg/dL (NEGATIVE)
[2022-01-04 15:01] LABS: BASOPHILS % (AUTO) 0.5 % (0.0-5.0); EOSINOPHILS % (AUTO) 5.7 % (0.0-8.0); HEMATOCRIT 37.8 % (42-54); LYMPHOCYTES % (AUTO) 34.1 % (21.0-51.0); MEAN CORPUSCULAR HEMOGLOBIN 29.3 pg (27.0-33.0); MEAN CORPUSCULAR HGB CONC 34.1 g/dL (32.0-36.0); MEAN CORPUSCULAR VOLUME 85.7 fL (79-99); MONOCYTES % (AUTO) 11.7 % (3.0-13.0); NEUTROPHILS % (AUTO) 47.9 % (40.0-77.0); PLATELET COUNT (AUTO) 281 K/uL (130-400); RED BLOOD CELL COUNT(AUTO) 4.41 MIL/uL (4.50-6.20); RED CELL DISTRIBUTION WIDTH 13.2 % (11.0-15.5); WHITE BLOOD COUNT (AUTO) 8.4 K/uL (4.8-10.8)
[2022-01-04 15:14] LABS: CREATININE 0.9 mg/dL (0.5-1.5)
[2022-01-04 15:16] LABS: INR 1.14 (0.85-1.15); PROTHROMBIN TIME 12.3 SEC (9.6-11.6)
[2022-01-04 15:17] LABS: PARTIAL THROMBOPLASTIN TIME 31.3 SEC (26.3-35.5)
[2022-01-04 15:17] LABS: RBC,URINE 26-50 /HPF (0-1)
[2022-01-04 15:19] LABS: ALBUMIN 3.1 g/dL (3.5-5.0); BILIRUBIN,TOTAL 0.5 mg/dL (0.2-1.0); TOTAL PROTEIN, SERUM 7.4 g/dL (6.0-8.3)
[2022-01-04 15:19] LABS: BACTERIA,URINE Few /HPF (None Seen); MUCUS,URINE Few LPF (None Seen); SQUAMOUS EPITHELIAL CELL,UR Rare /HPF (0-2); WBC,URINE 0-1 /HPF (0-1)
[2022-01-04] MEDS ORDERED: 0.9%NACL 1000ML 1,000 ML IV SCH (15:30)
[2022-01-04] MEDS ORDERED: HYDRALAZINE 20MG/ML VIAL IV PRN (18:30)
[2022-01-04] MEDS ORDERED: ACETAMINOPHEN 650 MG SUPPOSITORY RC PRN (18:30)
[2022-01-04] MEDS ORDERED: LACTULOSE 20 GM/30 ML UDCUP PO PRN (18:30)
[2022-01-04] MEDS ORDERED: ONDANSETRON 4MG INJ IVP PRN (18:30)
[2022-01-04] MEDS ORDERED: ACETAMINOPHEN 325 MG TAB PO PRN (18:30)
[2022-01-04] MEDS: 0.9%NACL 1000ML 1,000 ML IV SCH (19:57)
[2022-01-04 20:16] LABS: ABG HCO3 25.1 mmol/L (21.0-28.0); ABG OXYGEN SATURATION 98.7 % (95.0-99.0); ABG PCO2 43 mmHg (35-48)
[2022-01-04] MEDS: INSULIN LISPRO 100 UNIT/ML 3ML SQ SCH (21:00)
[2022-01-05] MEDS: 0.9%NACL 1000ML 1,000 ML IV SCH ×3 (04:58→15:47)
[2022-01-05 05:30] LABS: BASOPHILS % (AUTO) 0.6 % (0.0-5.0); EOSINOPHILS % (AUTO) 8.1 % (0.0-8.0); HEMATOCRIT 36.9 % (42-54); LYMPHOCYTES % (AUTO) 39.8 % (21.0-51.0); MEAN CORPUSCULAR HGB CONC 33.6 g/dL (32.0-36.0); MEAN CORPUSCULAR VOLUME 86.4 fL (79-99); MONOCYTES % (AUTO) 11.1 % (3.0-13.0); NEUTROPHILS % (AUTO) 40.1 % (40.0-77.0); PLATELET COUNT (AUTO) 269 K/uL (130-400); RED BLOOD CELL COUNT(AUTO) 4.27 MIL/uL (4.50-6.20); RED CELL DISTRIBUTION WIDTH 13.2 % (11.0-15.5); WHITE BLOOD COUNT (AUTO) 7.2 K/uL (4.8-10.8)
[2022-01-05 05:55] LABS: CREATININE 0.8 mg/dL (0.5-1.5); MAGNESIUM 1.7 mg/dL (1.80-2.40); PHOSPHORUS 3.4 mg/dL (2.5-4.9)
[2022-01-05 07:22] VITALS: BP 146/58
[2022-01-05] MEDS: INSULIN LISPRO 100 UNIT/ML 3ML SQ SCH ×3 (07:30→21:00)
[2022-01-05] MEDS ORDERED: TAMSULOSIN HCL 0.4 MG CAP.ER.24H PO SCH (09:00)
[2022-01-05 12:07] VITALS: BP 128/65
[2022-01-05] MEDS: TAMSULOSIN HCL 0.4 MG CAP.ER.24H PO SCH (15:45)
[2022-01-05] MEDS: CEFTRIAXONE 2GM VIAL IVP SCH (15:45)
[2022-01-05 16:08] VITALS: BP 121/56
[2022-01-05] MEDS ORDERED: ALBUTEROL 0.083% 2.5 MG/3 ML INH IH PRN (18:00)
[2022-01-05] MEDS ORDERED: LACTULOSE 20 GM/30 ML UDCUP PO ONE (18:00)
[2022-01-05 19:30] VITALS: BP 134/53
[2022-01-05 23:32] VITALS: BP 140/61
[2022-01-06 04:01] VITALS: BP 132/56
[2022-01-06 05:34] LABS: BASOPHILS % (AUTO) 0.5 % (0.0-5.0); EOSINOPHILS % (AUTO) 9.6 % (0.0-8.0); HEMATOCRIT 32.7 % (42-54); LYMPHOCYTES % (AUTO) 45.5 % (21.0-51.0); MEAN CORPUSCULAR HEMOGLOBIN 29.6 pg (27.0-33.0); MEAN CORPUSCULAR HGB CONC 33.6 g/dL (32.0-36.0); MEAN CORPUSCULAR VOLUME 88.1 fL (79-99); MONOCYTES % (AUTO) 9.6 % (3.0-13.0); NEUTROPHILS % (AUTO) 34.5 % (40.0-77.0); PLATELET COUNT (AUTO) 264 K/uL (130-400); RED BLOOD CELL COUNT(AUTO) 3.71 MIL/uL (4.50-6.20); RED CELL DISTRIBUTION WIDTH 13.2 % (11.0-15.5); WHITE BLOOD COUNT (AUTO) 7.9 K/uL (4.8-10.8)
[2022-01-06 06:05] LABS: ALBUMIN 2.4 g/dL (3.5-5.0); BILIRUBIN,TOTAL 0.3 mg/dL (0.2-1.0); CREATININE 0.8 mg/dL (0.5-1.5); POTASSIUM 3.8 mmol/L (3.5-5.1); THYROID STIMULATING HORMONE 0.11 uIU/mL (0.36-3.74)
[2022-01-06] MEDS: INSULIN LISPRO 100 UNIT/ML 3ML SQ SCH ×2 (06:23→11:30)
[2022-01-06] MEDS: 0.9%NACL 1000ML 1,000 ML IV SCH (06:28)
[2022-01-06 08:13] VITALS: BP 131/64
[2022-01-06] MEDS: CEFTRIAXONE 2GM VIAL IVP SCH (08:58)
[2022-01-06] MEDS: TAMSULOSIN HCL 0.4 MG CAP.ER.24H PO SCH (08:59)
[2022-01-06] MEDS ORDERED: MAGNESIUM CITRATE 296 ML SOLUTION PO SCH (09:00)
[2022-01-06] MEDS ORDERED: PANTOPRAZOLE 40 MG TAB DR PO SCH (09:00)
[2022-01-06] MEDS ORDERED: ENOXAPARIN SODIUM 30 MG/0.3 ML SQ SCH (09:00)
[2022-01-06] MEDS ORDERED: POLYETHYLENE GLYCOL 3350 17 GM POWD.PACK PO SCH (09:00)
[2022-01-06 12:07] VITALS: BP 108/46
== END 2022-01-06 15:00 | disposition home or self-care (01) ==
LOC: EDH 13:16 → EDHIP 18:28 → 3AH 01-05 07:28
PROVIDERS: ADMIT Internal Medicine Pulmonary Disease; ATTEND Internal Medicine Pulmonary Disease
DX: F03.90 Unspecified dementia, unspecified severity, without behavioral disturbance, psychotic disturbance, mood disturbance, and anxiety (principal); Z20.822 Contact with and (suspected) exposure to COVID-19; N30.91 Cystitis, unspecified with hematuria; J84.10 Pulmonary fibrosis, unspecified; G93.41 Metabolic encephalopathy; E87.3 Alkalosis; R41.82 Altered mental status, unspecified; I10 Essential (primary) hypertension; E03.9 Hypothyroidism, unspecified; N40.0 Benign prostatic hyperplasia without lower urinary tract symptoms; D63.8 Anemia in other chronic diseases classified elsewhere; E84.9 Cystic fibrosis, unspecified; K59.09 Other constipation; N28.1 Cyst of kidney, acquired; Z79.899 Other long term (current) drug therapy; Z87.891 Personal history of nicotine dependence; Z90.49 Acquired absence of other specified parts of digestive tract; Z99.81 Dependence on supplemental oxygen; Z98.890 Other specified postprocedural states
CPT/HCPCS: 36415 ×3; 36600; 70450; 71045 ×2; 74176; 76770; 80048; 80053 ×2; 81001; 82140; 82803; 82948 ×5; 83605 ×2; 83735; 84100; 84145; 84443 ×2; 84484; 85025 ×3; 85610; 85730; 87040 ×2; 87635; 87804 ×2; 93005; 96361 ×3; 96372; 96374; 96376; 97039 ×2; 97161; 99285; C9803; G0378 ×44; J0696 ×2; J1650; J7030 ×4

== ENCOUNTER → 2022-03-18 | Outpatient (CLI) | payer MEDICARE ==
[~2022-03-18] MED LIST changes: -ACET-66 PO; -CEPH500B PO; -NITR100C PO; -ONDA4TAB10 PO; +SIMV-343 PO; -SIMV20TA2 PO
== END | disposition home or self-care (01) ==
LOC: RAH 10:16
PROVIDERS: ATTEND Internal Medicine Critical Care Medicine
DX: R13.12 Dysphagia, oropharyngeal phase (principal); R63.30 Feeding difficulties, unspecified
CPT/HCPCS: 74230; 92611

== ENCOUNTER → 2022-05-18 | Outpatient (CLI) | payer MEDICARE ==
[2022-05-18 11:03] LABS: BASOPHILS % (AUTO) 0.6 % (0.0-5.0); EOSINOPHILS % (AUTO) 6.9 % (0.0-8.0); HEMATOCRIT 40.3 % (42-54); LYMPHOCYTES % (AUTO) 35.2 % (21.0-51.0); MEAN CORPUSCULAR HEMOGLOBIN 27.7 pg (27.0-33.0); MEAN CORPUSCULAR HGB CONC 32.3 g/dL (32.0-36.0); MEAN CORPUSCULAR VOLUME 85.9 fL (79-99); MONOCYTES % (AUTO) 6.7 % (3.0-13.0); NEUTROPHILS % (AUTO) 50.3 % (40.0-77.0); PLATELET COUNT (AUTO) 267 K/uL (130-400); RED BLOOD CELL COUNT(AUTO) 4.69 MIL/uL (4.50-6.20); RED CELL DISTRIBUTION WIDTH 14.9 % (11.0-15.5)
[2022-05-18 11:17] LABS: ALBUMIN 3.4 g/dL (3.5-5.0); BILIRUBIN,DIRECT 0.2 mg/dL (0.0-0.3); CREATININE 1.1 mg/dL (0.5-1.5); CRP QUANTITATIVE 27.6 mg/L (0.00-9.0); POTASSIUM 3.7 mmol/L (3.5-5.1); TOTAL PROTEIN, SERUM 8.2 g/dL (6.0-8.3)
[2022-05-18 12:10] LABS: ERYTHROCYTE SEDIMENTATION RATE 50 MM/HR (0-20)
== END | disposition home or self-care (01) ==
LOC: LAB 09:59
PROVIDERS: ATTEND Internal Medicine Critical Care Medicine
DX: J84.112 Idiopathic pulmonary fibrosis (principal)
CPT/HCPCS: 36415; 80053; 80076; 82248; 83516; 85025; 85651; 86038; 86140; 86200; 86215; 86235; 86255; 86431

== ENCOUNTER 2022-05-29 10:53 | Emergency (ER) | payer MEDICARE ==
[~2022-05-29] VITALS: Ht 172.7 cm; Wt 56.7 kg
[2022-05-29 11:38] LABS: BASOPHILS % (AUTO) 0.3 % (0.0-5.0); EOSINOPHILS % (AUTO) 4.8 % (0.0-8.0); HEMATOCRIT 35.9 % (42-54); LYMPHOCYTES % (AUTO) 37.7 % (21.0-51.0); MEAN CORPUSCULAR HEMOGLOBIN 27.4 pg (27.0-33.0); MEAN CORPUSCULAR HGB CONC 32.9 g/dL (32.0-36.0); MEAN CORPUSCULAR VOLUME 83.5 fL (79-99); MONOCYTES % (AUTO) 8.7 % (3.0-13.0); NEUTROPHILS % (AUTO) 48.2 % (40.0-77.0); PLATELET COUNT (AUTO) 233 K/uL (130-400); RED CELL DISTRIBUTION WIDTH 14.9 % (11.0-15.5); WHITE BLOOD COUNT (AUTO) 7.1 K/uL (4.8-10.8)
[2022-05-29 11:40] LABS: CARBON DIOXIDE 35 mmol/L (21-32); CHLORIDE 102 mmol/L (101-111); CREATININE 0.9 mg/dL (0.5-1.5); GLOMERULAR FILTR. RATE CALC 85 mL/min (>60); GLUCOSE,RANDOM 89 mg/dL (70-105); POTASSIUM 3.9 mmol/L (3.5-5.1); SODIUM SERUM 139 mmol/L (136-145); UREA NITROGEN, BLOOD 18 mg/dL (7-18)
[2022-05-29 11:45] LABS: ALANINE AMINOTRANSFERASE 13 U/L (12-78); ALBUMIN 3.1 g/dL (3.5-5.0); ASPARTATE AMINOTRANSFERASE 27 U/L (10-37); TOTAL PROTEIN, SERUM 7.5 g/dL (6.0-8.3)
[2022-05-29 11:48] LABS: AMMONIA < 10 umol/L (11-32)
[2022-05-29 12:21] LABS: APPEARANCE,URINE CLEAR (CLEAR); BILIRUBIN,URINE NEGATIVE (NEGATIVE); COLOR,URINE YELLOW (YELLOW); GLUCOSE, URINE (UA) NEGATIVE (NEGATIVE); KETONES,URINE 5 mg/dL (NEGATIVE); LEUKOCYTE ESTERASE ,URINE NEGATIVE Leu/uL (NEGATIVE); NITRATE,URINE NEGATIVE (NEGATIVE); OCCULT BLOOD,URINE MODERATE (NEGATIVE); PROTEIN,URINE NEGATIVE (NEGATIVE); UROBILINOGEN,URINE 0.2 mg/dL (0.2-1.0)
[2022-05-29 12:32] LABS: WBC,URINE None Seen /HPF (0-1)
[2022-05-29 12:33] LABS: BACTERIA,URINE Rare /HPF (None Seen); SQUAMOUS EPITHELIAL CELL,UR 0-2 /HPF (0-2)
[2022-05-29 14:21] VITALS: BP 124/66
== END 2022-05-29 15:30 | disposition home or self-care (01) ==
LOC: EDH 10:53
DX: S09.90XA Unspecified injury of head, initial encounter (principal); Z88.8 Allergy status to other drugs, medicaments and biological substances; F03.90 Unspecified dementia, unspecified severity, without behavioral disturbance, psychotic disturbance, mood disturbance, and anxiety; Z98.890 Other specified postprocedural states; Z79.899 Other long term (current) drug therapy; X58.XXXA Exposure to other specified factors, initial encounter; Y93.89 Activity, other specified; Y92.89 Other specified places as the place of occurrence of the external cause; Y99.8 Other external cause status
CPT/HCPCS: 36415; 70450; 80053; 81001; 81003; 82140; 83605; 84484; 85025; 87040; 93005

== ENCOUNTER 2022-09-04 17:40 | Emergency (ER) | payer MEDICARE ==
[~2022-09-04] VITALS: Ht 167.6 cm; Wt 54.4 kg
[2022-09-04 18:16] LABS: BASOPHILS % (AUTO) 0.4 % (0.0-5.0); EOSINOPHILS % (AUTO) 4.5 % (0.0-8.0); HEMATOCRIT 31.8 % (42-54); MEAN CORPUSCULAR HEMOGLOBIN 28.4 pg (27.0-33.0); MEAN CORPUSCULAR VOLUME 85.9 fL (79-99); MONOCYTES % (AUTO) 8.7 % (3.0-13.0); NEUTROPHILS % (AUTO) 54.3 % (40.0-77.0); PLATELET COUNT (AUTO) 279 K/uL (130-400); RED CELL DISTRIBUTION WIDTH 18.1 % (11.0-15.5)
[2022-09-04 18:28] LABS: CREATININE 0.8 mg/dL (0.5-1.5); POTASSIUM 3.5 mmol/L (3.5-5.1)
[2022-09-04 18:36] LABS: ALBUMIN 2.6 g/dL (3.5-5.0); TOTAL PROTEIN, SERUM 6.9 g/dL (6.0-8.3)
[2022-09-04 19:17] LABS: APPEARANCE,URINE CLEAR (CLEAR); BILIRUBIN,URINE NEGATIVE (NEGATIVE); COLOR,URINE YELLOW (YELLOW); GLUCOSE, URINE (UA) NEGATIVE (NEGATIVE); KETONES,URINE NEGATIVE (NEGATIVE); LEUKOCYTE ESTERASE ,URINE 75 Leu/uL (NEGATIVE); NITRATE,URINE NEGATIVE (NEGATIVE); OCCULT BLOOD,URINE MODERATE (NEGATIVE); PH,URINE 5.5 (5.0-8.0); PROTEIN,URINE NEGATIVE (NEGATIVE); UROBILINOGEN,URINE 0.2 mg/dL (0.2-1.0)
[2022-09-04 19:23] LABS: BACTERIA,URINE FEW /HPF (None Seen); MUCUS,URINE RARE LPF (None Seen); SQUAMOUS EPITHELIAL CELL,UR RARE /HPF (0-2)
[2022-09-04] MEDS ORDERED: ACETAMINOPHEN 500 MG TABLET PO ONE (21:30)
[2022-09-04] MEDS ORDERED: CEPH500B PO (22:50)
[2022-09-04 22:57] VITALS: BP 111/51
[2022-09-04] MEDS ORDERED: CEFTRIAXONE 1G VIAL IVP ONE (23:00)
== END 2022-09-04 23:08 | disposition home or self-care (01) ==
LOC: EDH 17:40
DX: N39.0 Urinary tract infection, site not specified (principal); N13.8 Other obstructive and reflux uropathy; M25.561 Pain in right knee; M79.641 Pain in right hand; J84.10 Pulmonary fibrosis, unspecified; Z79.899 Other long term (current) drug therapy; Z88.6 Allergy status to analgesic agent
CPT/HCPCS: 99285; 96374; 84484; 80053; 85025; 87077; 87088; 87186; 81001; 36415; 73560; 51702; 93005; J0696

== ENCOUNTER 2022-09-10 16:31 | Emergency (ER) | payer MEDICARE ==
[~2022-09-10] VITALS: Ht 170.2 cm; Wt 72.6 kg
[~2022-09-10 16:31] MED LIST changes: +CEPH500B PO
[2022-09-10 17:10] LABS: HEMATOCRIT 33.9 % (42-54); MEAN CORPUSCULAR HEMOGLOBIN 28.7 pg (27.0-33.0); MEAN CORPUSCULAR HGB CONC 32.7 g/dL (32.0-36.0); MEAN CORPUSCULAR VOLUME 87.6 fL (79-99); RED BLOOD CELL COUNT(AUTO) 3.87 MIL/uL (4.50-6.20); RED CELL DISTRIBUTION WIDTH 18.2 % (11.0-15.5); WHITE BLOOD COUNT (AUTO) 6.7 K/uL (4.8-10.8)
[2022-09-10 17:19] LABS: CREATININE 0.9 mg/dL (0.5-1.5); POTASSIUM 4.1 mmol/L (3.5-5.1)
[2022-09-10 17:23] LABS: ALBUMIN 2.6 g/dL (3.5-5.0); TOTAL PROTEIN, SERUM 7.2 g/dL (6.0-8.3)
[2022-09-10] MEDS ORDERED: MORPHINE 2 MG SYG IVP ONE (18:00)
[2022-09-10] MEDS ORDERED: ONDANSETRON 4MG INJ IVP ONE (18:00)
[2022-09-10] MEDS ORDERED: LACTATED RINGERS 1000ML 1,000 ML IV ONE (18:00)
[2022-09-10 20:48] LABS: APPEARANCE,URINE CLEAR (CLEAR); BILIRUBIN,URINE NEGATIVE (NEGATIVE); COLOR,URINE LIGHT-YELLOW (YELLOW); GLUCOSE, URINE (UA) NEGATIVE (NEGATIVE); KETONES,URINE NEGATIVE (NEGATIVE); LEUKOCYTE ESTERASE ,URINE NEGATIVE Leu/uL (NEGATIVE); NITRATE,URINE NEGATIVE (NEGATIVE); OCCULT BLOOD,URINE SMALL (NEGATIVE); PH,URINE 6.5 (5.0-8.0); PROTEIN,URINE NEGATIVE (NEGATIVE); UROBILINOGEN,URINE 0.2 mg/dL (0.2-1.0)
[2022-09-10 20:54] LABS: BACTERIA,URINE RARE /HPF (None Seen); MUCUS,URINE RARE LPF (None Seen)
[2022-09-10 22:12] VITALS: BP 106/46
[2022-09-10] MEDS ORDERED: LACT10SO5 PO (22:31)
[2022-09-10] MEDS ORDERED: BISA10SU61 RC (22:31)
== END 2022-09-10 23:19 | disposition home or self-care (01) ==
LOC: EDH 16:31
DX: K59.09 Other constipation (principal); E03.9 Hypothyroidism, unspecified; E86.0 Dehydration; F03.90 Unspecified dementia, unspecified severity, without behavioral disturbance, psychotic disturbance, mood disturbance, and anxiety; Z79.899 Other long term (current) drug therapy; Z98.890 Other specified postprocedural states; Z88.6 Allergy status to analgesic agent
CPT/HCPCS: 99285; 80053; 83690; 85027; 81001; 36415; 74018; 74177; 96374; 96361; 96375; 93005; J7120; J2405

== ENCOUNTER 2022-09-23 11:12 | Emergency (ER) | payer MEDICARE ==
[~2022-09-23] VITALS: Ht 162.6 cm; Wt 70.3 kg
[~2022-09-23 11:12] MED LIST changes: +BISA10SU61 RC; +LACT10SO5 PO
[2022-09-23 12:10] LABS: BASOPHILS % (AUTO) 0.4 % (0.0-5.0); EOSINOPHILS % (AUTO) 3.2 % (0.0-8.0); LYMPHOCYTES % (AUTO) 32.5 % (21.0-51.0); MEAN CORPUSCULAR HEMOGLOBIN 28.8 pg (27.0-33.0); MEAN CORPUSCULAR HGB CONC 32.4 g/dL (32.0-36.0); MEAN CORPUSCULAR VOLUME 88.9 fL (79-99); MONOCYTES % (AUTO) 9.5 % (3.0-13.0); NEUTROPHILS % (AUTO) 54.1 % (40.0-77.0); PLATELET COUNT (AUTO) 285 K/uL (130-400); RED BLOOD CELL COUNT(AUTO) 3.71 MIL/uL (4.50-6.20); RED CELL DISTRIBUTION WIDTH 16.6 % (11.0-15.5); WHITE BLOOD COUNT (AUTO) 9.1 K/uL (4.8-10.8)
[2022-09-23 12:22] LABS: CREATININE 0.9 mg/dL (0.5-1.5)
[2022-09-23 12:26] LABS: ALBUMIN 2.6 g/dL (3.5-5.0); TOTAL PROTEIN, SERUM 6.8 g/dL (6.0-8.3)
[2022-09-23 14:11] LABS: APPEARANCE,URINE CLOUDY (CLEAR); BILIRUBIN,URINE NEGATIVE (NEGATIVE); COLOR,URINE YELLOW (YELLOW); GLUCOSE, URINE (UA) NEGATIVE (NEGATIVE); KETONES,URINE NEGATIVE (NEGATIVE); LEUKOCYTE ESTERASE ,URINE 500 Leu/uL (NEGATIVE); NITRATE,URINE NEGATIVE (NEGATIVE); OCCULT BLOOD,URINE MODERATE (NEGATIVE); PH,URINE 5.5 (5.0-8.0); PROTEIN,URINE 20 mg/dL (NEGATIVE); UROBILINOGEN,URINE 3 mg/dL (0.2-1.0)
[2022-09-23 14:29] LABS: BACTERIA,URINE MANY /HPF (None Seen); MUCUS,URINE RARE LPF (None Seen); WBC,URINE TNTC /HPF (0-1)
[2022-09-23] MEDS ORDERED: MACR100 PO (14:40)
[2022-09-23] MEDS ORDERED: CEFTRIAXONE 1G VIAL IVP ONE (15:00)
[2022-09-23 16:48] VITALS: BP 100/78
== END 2022-09-23 16:53 | disposition home or self-care (01) ==
LOC: EDH 11:12
DX: N39.0 Urinary tract infection, site not specified (principal); J84.10 Pulmonary fibrosis, unspecified; F03.90 Unspecified dementia, unspecified severity, without behavioral disturbance, psychotic disturbance, mood disturbance, and anxiety; D64.9 Anemia, unspecified; Z88.6 Allergy status to analgesic agent; Z79.899 Other long term (current) drug therapy
CPT/HCPCS: 99285; 96374; 71045; 84484; 80053; 85025; 87077; 87088; 87186; 81001; 36415; 93005; J0696

== ENCOUNTER 2022-09-26 11:09 | Inpatient (IN) | payer MEDICARE ==
[~2022-09-26] VITALS: Ht 162.6 cm; Wt 62.6 kg
[2022-09-26] VITALS (10 sets, daily range): BP systolic 101–125; BP diastolic 43–66
[~2022-09-26 11:09] MED LIST changes: +MACR100 PO
[2022-09-26] MEDS ORDERED: SOLU-MEDROL 125MG VIAL ONE (11:19)
[2022-09-26] MEDS ORDERED: IPRATROPIUM/ALBUTEROL SULFATE 3 ML SOLUTION IH ONE (11:30)
[2022-09-26] MEDS ORDERED: SOLU-MEDROL 125MG VIAL IVP ONE (11:30)
[2022-09-26 11:45] LABS: ABG BASE EXCESS 3.4 mmol/L (-2.0-3.0); ABG HCO3 27.7 mmol/L (21.0-28.0); ABG OXYGEN SATURATION 99.5 % (95.0-99.0); ABG PCO2 41 mmHg (35-48)
[2022-09-26 11:49] LABS: BASOPHILS % (AUTO) 0.2 % (0.0-5.0); EOSINOPHILS % (AUTO) 0.5 % (0.0-8.0); HEMATOCRIT 34.6 % (42-54); LYMPHOCYTES % (AUTO) 21.3 % (21.0-51.0); MEAN CORPUSCULAR HEMOGLOBIN 28.3 pg (27.0-33.0); MEAN CORPUSCULAR HGB CONC 32.7 g/dL (32.0-36.0); MEAN CORPUSCULAR VOLUME 86.7 fL (79-99); MONOCYTES % (AUTO) 7.4 % (3.0-13.0); NEUTROPHILS % (AUTO) 70.1 % (40.0-77.0); PLATELET COUNT (AUTO) 356 K/uL (130-400); RED BLOOD CELL COUNT(AUTO) 3.99 MIL/uL (4.50-6.20); RED CELL DISTRIBUTION WIDTH 15.9 % (11.0-15.5); WHITE BLOOD COUNT (AUTO) 16.9 K/uL (4.8-10.8)
[2022-09-26 12:01] LABS: CREATININE 0.8 mg/dL (0.5-1.5)
[2022-09-26 12:05] LABS: ALBUMIN 2.7 g/dL (3.5-5.0); MAGNESIUM 1.9 mg/dL (1.80-2.40); TOTAL PROTEIN, SERUM 7.2 g/dL (6.0-8.3)
[2022-09-26 12:24] LABS: B-TYPE NATRIURETIC PEPTIDE 93 pg/mL (0-100)
[2022-09-26] MEDS ORDERED: MEROPENEM 1 GM VIAL IVP SCH (12:30)
[2022-09-26 12:49] LABS: APPEARANCE,URINE CLOUDY (CLEAR); BILIRUBIN,URINE NEGATIVE (NEGATIVE); COLOR,URINE YELLOW (YELLOW); GLUCOSE, URINE (UA) NEGATIVE (NEGATIVE); KETONES,URINE 10 mg/dL (NEGATIVE); LEUKOCYTE ESTERASE ,URINE 500 Leu/uL (NEGATIVE); NITRATE,URINE NEGATIVE (NEGATIVE); OCCULT BLOOD,URINE MODERATE (NEGATIVE); PROTEIN,URINE 20 mg/dL (NEGATIVE)
[2022-09-26] MEDS ORDERED: MEROPENEM 1 GM VIAL ONE (13:24)
[2022-09-26 13:27] LABS: BACTERIA,URINE MOD /HPF (None Seen); MUCUS,URINE RARE LPF (None Seen); OTHER CASTS, URINE 1 /LPF (None Seen); RBC,URINE 26-50 /HPF (0-1); SQUAMOUS EPITHELIAL CELL,UR RARE /HPF (0-2); TRANSITIONAL EPI CELLS,URINE RARE /HPF (None Seen); WBC,URINE 51-100 /HPF (0-1)
[2022-09-26] MEDS ORDERED: ONDANSETRON 4MG INJ IVP PRN (13:30)
[2022-09-26] MEDS ORDERED: HYDRALAZINE 20MG/ML VIAL IV PRN (13:30)
[2022-09-26] MEDS ORDERED: LABETALOL 20MG SYG IV PRN (13:30)
[2022-09-26] MEDS ORDERED: DOCUSATE SODIUM 100 MG CAP PO PRN (13:30)
[2022-09-26] MEDS ORDERED: IPRATROPIUM/ALBUTEROL SULFATE 3 ML SOLUTION IH PRN (13:30)
[2022-09-26] MEDS ORDERED: ACETAMINOPHEN 325 MG TAB PO PRN ×2 (13:30→22:00)
[2022-09-26 16:24] LABS: ABG BASE EXCESS 1.9 mmol/L (-2.0-3.0); ABG HCO3 28.6 mmol/L (21.0-28.0); ABG OXYGEN SATURATION 99.7 % (95.0-99.0); ABG PCO2 54 mmHg (35-48)
[2022-09-26] MEDS ORDERED: VANCOMYCIN 1G VIAL IVPB SCH (16:30)
[2022-09-26] MEDS ORDERED: VANCOMYCIN PROTOCOL PER PHARMACY IV SCH (16:30)
[2022-09-26] MEDS: IPRATROPIUM/ALBUTEROL SULFATE 3 ML SOLUTION IH SCH (17:14)
[2022-09-26] MEDS ORDERED: DEXMEDETOMIDINE 400MCG/NS100ML IV ONE (17:49)
[2022-09-26] MEDS ORDERED: IPRATROPIUM/ALBUTEROL SULFATE 3 ML SOLUTION IH SCH (18:00)
[2022-09-26] MEDS ORDERED: RACEPINEPHRINE HCL 2.25% 0.5 ML NEB SOLN NEB SCH (18:00)
[2022-09-26] MEDS ORDERED: DEXMEDETOMIDINE 400MCG/NS100ML IV SCH (18:00)
[2022-09-26] MEDS: VANCOMYCIN 1G/250ML KIT 250 ML IV SCH (18:30)
[2022-09-26] MEDS: MEROPENEM 1 GM VIAL IVP SCH (18:30)
[2022-09-26 20:09] LABS: ABG HCO3 25.7 mmol/L (21.0-28.0); ABG OXYGEN SATURATION 97.8 % (95.0-99.0); ABG PCO2 51 mmHg (35-48)
[2022-09-26] MEDS ORDERED: PANTOPRAZOLE 40 MG/VIAL IVP ONE (21:54)
[2022-09-26] MEDS ORDERED: ENOXAPARIN SODIUM 30 MG/0.3 ML SQ ONE (21:54)
[2022-09-26] MEDS ORDERED: POTASSIUM CHLORIDE 10% ELIXIR 20 MEQ/15 ML UDCUP PO PRN (22:00)
[2022-09-26] MEDS ORDERED: LACTULOSE 20 GM/30 ML UDCUP PO PRN (22:00)
[2022-09-26] MEDS ORDERED: LIDOCAINE HCL-MPF 1% 2ML VIAL IV PRN ×2 (22:00)
[2022-09-26] MEDS ORDERED: POTASSIUM CHLORIDE 20MEQ/100ML 100 ML IV PRN ×2 (22:00)
[2022-09-26] MEDS ORDERED: KCL 20 MEQ ERTAB PO PRN (22:00)
[2022-09-26] MEDS ORDERED: GLUCAGON 1MG KIT 1 MG ML IM PRN (22:00)
[2022-09-26] MEDS ORDERED: DEXTROSE 50%-WATER 50 ML DISP.SYRIN IV PRN (22:00)
[2022-09-26] MEDS ORDERED: ACETAMINOPHEN 650 MG SUPPOSITORY RC PRN (22:00)
[2022-09-26] MEDS ORDERED: ONDA4TAB10 PO (22:15)
[2022-09-26] MEDS ORDERED: COLC0.6T73 PO (22:15)
[2022-09-26] MEDS ORDERED: NINT100C PO (22:15)
[2022-09-26] MEDS ORDERED: LEVO175T9 PO (22:15)
[2022-09-26] MEDS ORDERED: MEGE400O5 PO (22:15)
[2022-09-26] MEDS ORDERED: PRIM50TA23 PO (22:15)
[2022-09-26] MEDS ORDERED: LEVO137T2 PO (22:15)
[2022-09-26] MEDS ORDERED: SIMV-43 PO (22:15)
[2022-09-26] MEDS ORDERED: FERR325T29 PO (22:15)
[2022-09-26] MEDS ORDERED: OMEP40CA21 PO (22:15)
[2022-09-26] MEDS: DOXYCYCLINE 100MG+NS 250ML IV SCH (22:38)
[2022-09-26] MEDS: SOLU-MEDROL 40MG VIAL IVP SCH (22:38)
[2022-09-27] VITALS (24 sets, daily range): BP systolic 95–133; BP diastolic 38–92
[2022-09-27] MEDS: IPRATROPIUM/ALBUTEROL SULFATE 3 ML SOLUTION IH SCH ×4 (00:22→19:02)
[2022-09-27] MEDS: MEROPENEM 1 GM VIAL IVP SCH ×3 (00:34→16:18)
[2022-09-27 03:50] LABS: HEMATOCRIT 33.3 % (42-54); MEAN CORPUSCULAR HEMOGLOBIN 28.4 pg (27.0-33.0); MEAN CORPUSCULAR HGB CONC 32.1 g/dL (32.0-36.0); MEAN CORPUSCULAR VOLUME 88.3 fL (79-99); RED BLOOD CELL COUNT(AUTO) 3.77 MIL/uL (4.50-6.20); RED CELL DISTRIBUTION WIDTH 15.5 % (11.0-15.5); WHITE BLOOD COUNT (AUTO) 12.4 K/uL (4.8-10.8)
[2022-09-27 04:16] LABS: CREATININE 0.9 mg/dL (0.5-1.5); MAGNESIUM 1.9 mg/dL (1.80-2.40); PHOSPHORUS 4.1 mg/dL (2.5-4.9); POTASSIUM 4.1 mmol/L (3.5-5.1); THYROID STIMULATING HORMONE 0.05 uIU/mL (0.36-3.74)
[2022-09-27] MEDS: SOLU-MEDROL 40MG VIAL IVP SCH ×3 (05:34→21:02)
[2022-09-27] MEDS: MAGNESIUM 2GM PREMIX 50ML 50 ML IV PRN (05:36)
[2022-09-27] MEDS ORDERED: ESCI20TA38 PO (06:36)
[2022-09-27] MEDS ORDERED: ENAL2.5T16 PO (06:36)
[2022-09-27] MEDS ORDERED: NITR100C9 PO (06:36)
[2022-09-27] MEDS ORDERED: LEVOTHYROXINE 112 MCG TABLET PO SCH (06:56)
[2022-09-27] MEDS: TAMSULOSIN HCL 0.4 MG CAP.ER.24H PO SCH (09:00)
[2022-09-27] MEDS: FERROUS SULFATE 325 MG TABLET.DR PO SCH (09:00)
[2022-09-27] MEDS ORDERED: PANTOPRAZOLE 40 MG TAB DR PO SCH (09:00)
[2022-09-27] MEDS: ENOXAPARIN SODIUM 30 MG/0.3 ML SQ SCH (09:15)
[2022-09-27] MEDS: PANTOPRAZOLE 40 MG/VIAL IVP SCH ×2 (09:16→21:02)
[2022-09-27] MEDS: DOXYCYCLINE 100MG+NS 250ML IV SCH ×2 (09:16→21:02)
[2022-09-27] MEDS: PRIMIDONE 50 MG TAB PO SCH (09:33)
[2022-09-27] MEDS: SIMVASTATIN 20 MG TABLET PO SCH (09:33)
[2022-09-27] MEDS: LEVOTHYROXINE 25 MCG TABLET PO SCH (09:34)
[2022-09-27 09:58] LABS: ABG BASE EXCESS 1.5 mmol/L (-2.0-3.0); ABG HCO3 27.1 mmol/L (21.0-28.0); ABG OXYGEN SATURATION 95.6 % (95.0-99.0); ABG PCO2 46 mmHg (35-48)
[2022-09-27] MEDS: VANCOMYCIN 1G/250ML KIT 250 ML IV SCH (16:18)
[2022-09-27] MEDS: BALSAM PERU/CASTOR OIL 60 GM TUBE TP SCH (21:06)
[2022-09-28] VITALS (26 sets, daily range): BP systolic 87–136; BP diastolic 35–89
[2022-09-28] MEDS: IPRATROPIUM/ALBUTEROL SULFATE 3 ML SOLUTION IH SCH ×5 (00:07→23:22)
[2022-09-28] MEDS: MEROPENEM 1 GM VIAL IVP SCH ×3 (00:30→15:38)
[2022-09-28 04:18] LABS: BASOPHILS % (AUTO) 0.1 % (0.0-5.0); HEMATOCRIT 32.8 % (42-54); LYMPHOCYTES % (AUTO) 7.6 % (21.0-51.0); MEAN CORPUSCULAR HEMOGLOBIN 28.8 pg (27.0-33.0); MEAN CORPUSCULAR HGB CONC 32.6 g/dL (32.0-36.0); MEAN CORPUSCULAR VOLUME 88.2 fL (79-99); MONOCYTES % (AUTO) 1.7 % (3.0-13.0); NEUTROPHILS % (AUTO) 89.6 % (40.0-77.0); PLATELET COUNT (AUTO) 371 K/uL (130-400); RED BLOOD CELL COUNT(AUTO) 3.72 MIL/uL (4.50-6.20); RED CELL DISTRIBUTION WIDTH 15.6 % (11.0-15.5); WHITE BLOOD COUNT (AUTO) 21.4 K/uL (4.8-10.8)
[2022-09-28 04:47] LABS: ALBUMIN 2.2 g/dL (3.5-5.0); CREATININE 0.9 mg/dL (0.5-1.5); POTASSIUM 3.9 mmol/L (3.5-5.1); TOTAL PROTEIN, SERUM 6.3 g/dL (6.0-8.3)
[2022-09-28] MEDS: SOLU-MEDROL 40MG VIAL IVP SCH ×3 (06:20→20:50)
[2022-09-28] MEDS: LEVOTHYROXINE 112 MCG TABLET PO SCH (06:20)
[2022-09-28] MEDS: LEVOTHYROXINE 25 MCG TABLET PO SCH (06:20)
[2022-09-28 07:54] LABS: ABG BASE EXCESS 3.1 mmol/L (-2.0-3.0); ABG HCO3 29.5 mmol/L (21.0-28.0); ABG OXYGEN SATURATION 93.8 % (95.0-99.0); ABG PCO2 52 mmHg (35-48)
[2022-09-28] MEDS: FERROUS SULFATE 325 MG TABLET.DR PO SCH (08:00)
[2022-09-28] MEDS: ENOXAPARIN SODIUM 30 MG/0.3 ML SQ SCH (08:38)
[2022-09-28] MEDS: SIMVASTATIN 20 MG TABLET PO SCH (08:38)
[2022-09-28] MEDS: PANTOPRAZOLE 40 MG/VIAL IVP SCH ×2 (08:38→20:50)
[2022-09-28] MEDS: PRIMIDONE 50 MG TAB PO SCH (08:38)
[2022-09-28] MEDS: TAMSULOSIN HCL 0.4 MG CAP.ER.24H PO SCH (08:40)
[2022-09-28] MEDS: BALSAM PERU/CASTOR OIL 60 GM TUBE TP SCH ×2 (08:42→20:50)
[2022-09-28] MEDS: DOXYCYCLINE 100MG+NS 250ML IV SCH ×2 (10:42→20:49)
[2022-09-28] MEDS: VANCOMYCIN 1G/250ML KIT 250 ML IV SCH (16:48)
[2022-09-28] MEDS ORDERED: ZOLPIDEM TARTRATE 5 MG TAB PO PRN (22:00)
[2022-09-28] MEDS ORDERED: ZOLPIDEM TARTRATE 5 MG TAB ONE (22:02)
[2022-09-29] VITALS (21 sets, daily range): BP systolic 103–137; BP diastolic 37–65
[2022-09-29] MEDS: MEROPENEM 1 GM VIAL IVP SCH ×3 (01:06→15:35)
[2022-09-29 03:47] LABS: BASOPHILS % (AUTO) 0.1 % (0.0-5.0); HEMATOCRIT 34.3 % (42-54); LYMPHOCYTES % (AUTO) 9.2 % (21.0-51.0); MEAN CORPUSCULAR HEMOGLOBIN 28.2 pg (27.0-33.0); MEAN CORPUSCULAR HGB CONC 31.2 g/dL (32.0-36.0); MEAN CORPUSCULAR VOLUME 90.5 fL (79-99); MONOCYTES % (AUTO) 2.6 % (3.0-13.0); NEUTROPHILS % (AUTO) 87.5 % (40.0-77.0); PLATELET COUNT (AUTO) 333 K/uL (130-400); RED BLOOD CELL COUNT(AUTO) 3.79 MIL/uL (4.50-6.20); RED CELL DISTRIBUTION WIDTH 15.5 % (11.0-15.5); WHITE BLOOD COUNT (AUTO) 16.4 K/uL (4.8-10.8)
[2022-09-29 03:58] LABS: CREATININE 0.8 mg/dL (0.5-1.5); POTASSIUM 4.3 mmol/L (3.5-5.1)
[2022-09-29] MEDS: SOLU-MEDROL 40MG VIAL IVP SCH ×3 (06:10→20:24)
[2022-09-29] MEDS: LEVOTHYROXINE 112 MCG TABLET PO SCH (06:11)
[2022-09-29] MEDS: LEVOTHYROXINE 25 MCG TABLET PO SCH (06:11)
[2022-09-29] MEDS: VANCOMYCIN 500MG+NS 100ML 100 ML IV SCH ×2 (06:11→18:45)
[2022-09-29] MEDS: IPRATROPIUM/ALBUTEROL SULFATE 3 ML SOLUTION IH SCH ×3 (06:48→23:51)
[2022-09-29] MEDS: ENOXAPARIN SODIUM 30 MG/0.3 ML SQ SCH (08:16)
[2022-09-29] MEDS: FERROUS SULFATE 325 MG TABLET.DR PO SCH (08:17)
[2022-09-29] MEDS: TAMSULOSIN HCL 0.4 MG CAP.ER.24H PO SCH (08:17)
[2022-09-29] MEDS: MAGNESIUM 2GM PREMIX 50ML 50 ML IV PRN (08:17)
[2022-09-29] MEDS: PRIMIDONE 50 MG TAB PO SCH (08:17)
[2022-09-29] MEDS: SIMVASTATIN 20 MG TABLET PO SCH (08:17)
[2022-09-29] MEDS: PANTOPRAZOLE 40 MG/VIAL IVP SCH ×2 (08:17→20:24)
[2022-09-29] MEDS: BALSAM PERU/CASTOR OIL 60 GM TUBE TP SCH ×2 (08:19→20:28)
[2022-09-29] MEDS: DOXYCYCLINE 100MG+NS 250ML IV SCH ×2 (10:21→20:24)
[2022-09-30 00:35] VITALS: BP 141/79
[2022-09-30] MEDS: MEROPENEM 1 GM VIAL IVP SCH ×3 (01:07→16:45)
[2022-09-30 04:05] VITALS: BP 134/52
[2022-09-30] MEDS: IPRATROPIUM/ALBUTEROL SULFATE 3 ML SOLUTION IH SCH ×3 (06:00→18:30)
[2022-09-30 06:03] LABS: HEMATOCRIT 35.7 % (42-54); LYMPHOCYTES % (AUTO) 12.9 % (21.0-51.0); MEAN CORPUSCULAR HEMOGLOBIN 28.3 pg (27.0-33.0); MEAN CORPUSCULAR HGB CONC 31.7 g/dL (32.0-36.0); MEAN CORPUSCULAR VOLUME 89.5 fL (79-99); MONOCYTES % (AUTO) 3.9 % (3.0-13.0); NEUTROPHILS % (AUTO) 82.4 % (40.0-77.0); PLATELET COUNT (AUTO) 367 K/uL (130-400); RED BLOOD CELL COUNT(AUTO) 3.99 MIL/uL (4.50-6.20); RED CELL DISTRIBUTION WIDTH 15.7 % (11.0-15.5); WHITE BLOOD COUNT (AUTO) 10.6 K/uL (4.8-10.8)
[2022-09-30] MEDS: LEVOTHYROXINE 25 MCG TABLET PO SCH (06:30)
[2022-09-30 07:09] LABS: CREATININE 0.8 mg/dL (0.5-1.5); POTASSIUM 4.3 mmol/L (3.5-5.1)
[2022-09-30 07:58] VITALS: BP 147/49
[2022-09-30] MEDS: VANCOMYCIN 500MG+NS 100ML 100 ML IV SCH ×2 (08:25→19:13)
[2022-09-30] MEDS: SOLU-MEDROL 40MG VIAL IVP SCH ×2 (08:25→14:27)
[2022-09-30] MEDS: LEVOTHYROXINE 112 MCG TABLET PO SCH (08:25)
[2022-09-30] MEDS: FERROUS SULFATE 325 MG TABLET.DR PO SCH (08:28)
[2022-09-30] MEDS: PANTOPRAZOLE 40 MG/VIAL IVP SCH (09:41)
[2022-09-30] MEDS: PRIMIDONE 50 MG TAB PO SCH (09:42)
[2022-09-30] MEDS: TAMSULOSIN HCL 0.4 MG CAP.ER.24H PO SCH (09:42)
[2022-09-30] MEDS: ENOXAPARIN SODIUM 30 MG/0.3 ML SQ SCH (09:42)
[2022-09-30] MEDS: SIMVASTATIN 20 MG TABLET PO SCH (09:42)
[2022-09-30] MEDS: BALSAM PERU/CASTOR OIL 60 GM TUBE TP SCH (09:43)
[2022-09-30] MEDS: DOXYCYCLINE 100MG+NS 250ML IV SCH (09:44)
[2022-09-30 12:33] VITALS: BP 114/46
[2022-09-30 17:35] VITALS: BP 121/49
[2022-09-30 20:11] VITALS: BP 121/50
== END 2022-09-30 20:55 | DRG 871 ==
LOC: EDH 11:09 → EDHIP 13:07 → 3AH 15:37 → 2BH 16:45 → 3BH 09-29 18:12
PROVIDERS: ADMIT Internal Medicine Critical Care Medicine; ATTEND Internal Medicine Critical Care Medicine
PROC: 5A09357 Assistance with Respiratory Ventilation, Less than 24 Consecutive Hours, Continuous Positive Airway Pressure (ICD-10-PCS; 2022-09-26)
PROC: 5A09357 Assistance with Respiratory Ventilation, Less than 24 Consecutive Hours, Continuous Positive Airway Pressure (ICD-10-PCS; 2022-09-27)
PROC: 02HV33Z Insertion of Infusion Device into Superior Vena Cava, Percutaneous Approach (ICD-10-PCS; principal; 2022-09-29)
PROC: 5A09357 Assistance with Respiratory Ventilation, Less than 24 Consecutive Hours, Continuous Positive Airway Pressure (ICD-10-PCS; 2022-09-29)
PROC: 5A09357 Assistance with Respiratory Ventilation, Less than 24 Consecutive Hours, Continuous Positive Airway Pressure (ICD-10-PCS; 2022-09-30)
DX: A41.9 Sepsis, unspecified organism (principal); E43 Unspecified severe protein-calorie malnutrition; G93.41 Metabolic encephalopathy; J96.21 Acute and chronic respiratory failure with hypoxia; J96.22 Acute and chronic respiratory failure with hypercapnia; J18.9 Pneumonia, unspecified organism; R64 Cachexia; Z16.12 Extended spectrum beta lactamase (ESBL) resistance; N30.00 Acute cystitis without hematuria; Z20.822 Contact with and (suspected) exposure to COVID-19; J84.10 Pulmonary fibrosis, unspecified; R53.81 Other malaise; R62.7 Adult failure to thrive; B96.20 Unspecified Escherichia coli [E. coli] as the cause of diseases classified elsewhere; K21.9 Gastro-esophageal reflux disease without esophagitis; I10 Essential (primary) hypertension; D63.8 Anemia in other chronic diseases classified elsewhere; T38.0X5A Adverse effect of glucocorticoids and synthetic analogues, initial encounter; E03.9 Hypothyroidism, unspecified; N40.0 Benign prostatic hyperplasia without lower urinary tract symptoms; Z87.440 Personal history of urinary (tract) infections; Z99.81 Dependence on supplemental oxygen; Z68.23 Body mass index [BMI] 23.0-23.9, adult
CPT/HCPCS: 36415; 36600; 71045; 80048; 80053; 80202; 81001; 82435; 82550; 82803; 82947; 82948; 83605; 83735; 83874; 83880; 84100; 84132; 84295; 84443; 84484; 85018; 85025; 85027; 85378; 87040; 87581; 87635; 87804; 87880; 93005; 94640; 94660; 94664; 97039; 99291; C9113; G0378; J1650; J2185; J2920; J2930; J3370; J3475; J3490